=== PATIENT | female | born 1995 | race Caucasian/White ===

== ENCOUNTER → 2018-04-28 13:47 | Outpatient (CLI) | payer OTHER, SELFPAY ==
[2018-04-28 15:48] LABS: Alanine Aminotransferase 26 IU/L (9-52); Albumin 5.2 g/dL (3.5-5.0); Albumin Globulin Ratio 1.7 (1.0-2.8); Alkaline Phosphatase 52 U/L (38-126); Aspartate Aminotransferase 29 IU/L (14-36); BUN Creatinine Ratio 17.5 (6-22); Bilirubin Total 0.4 mg/dL (0.2-1.3); Blood Urea Nitrogen 14 mg/dL (7-17); Calcium 9.9 mg/dL (8.4-10.2); Carbon Dioxide 28 mmol/L (22-32); Chloride 100 mmol/L (98-107); Estimated Glomerular Filt Rate > 60.0 mL/min (>60); Globulin 3.1 g/dL (1.7-4.1); Glucose 84 mg/dL (70-100); HEMOLYSIS < 15 (0-50); Potassium 4.6 mmol/L (3.4-5.1); Sodium 140 mmol/L (137-145); Total Protein 8.3 g/dL (6.3-8.2)
== END ==
PROVIDERS: PCP Family Medicine; Visit Provider Physician Assistant
DX: L70.0 Acne vulgaris (principal)
CPT/HCPCS: 36415; 80053

== ENCOUNTER → 2018-08-17 08:26 | Outpatient (CLI) | payer OTHER, SELFPAY ==
[2018-08-17 10:37] LABS: Alanine Aminotransferase 12 IU/L (9-52); Albumin 4.6 g/dL (3.5-5.0); Albumin Globulin Ratio 1.5 (1.0-2.8); Alkaline Phosphatase 55 U/L (38-126); Aspartate Aminotransferase 25 IU/L (14-36); BUN Creatinine Ratio 11.3 (6-22); Bilirubin Total 0.3 mg/dL (0.2-1.3); Blood Urea Nitrogen 9 mg/dL (7-17); Calcium 9.4 mg/dL (8.4-10.2); Carbon Dioxide 26 mmol/L (22-32); Chloride 101 mmol/L (98-107); Estimated Glomerular Filt Rate > 60.0 mL/min (>60); Glucose 94 mg/dL (70-100); HEMOLYSIS < 15 (0-50); Potassium 4.3 mmol/L (3.4-5.1); Sodium 139 mmol/L (137-145); Total Protein 7.6 g/dL (6.3-8.2)
== END ==
PROVIDERS: Family Provider Family Medicine; PCP Family Medicine; Visit Provider Physician Assistant
DX: L70.0 Acne vulgaris (principal)
CPT/HCPCS: 36415; 80053

== ENCOUNTER → 2020-06-18 14:35 | Outpatient (CLI) | payer OTHER, SELFPAY ==
--- NOTE | 2020-06-18 14:37 | DI.RAD.S_ITS ---
PROCEDURE: XR FINGER LT MIN 2V INDICATIONS: L 3rd finger tip injury, r/o fracture. TECHNIQUE: AP hand, 2 views of the 3rd finger(s) acquired. COMPARISON: None. FINDINGS: Bones: No fractures or dislocations. No suspicious bony lesions. Soft tissues: No suspicious soft tissue calcifications. IMPRESSION: No acute osseous abnormalities. Dictated by: Saloni Serrano M.D. on 06/18/2020 at 14:52 Approved by: Saloni Serrano M.D. on 06/18/2020 at 14:53
== END ==
PROVIDERS: Family Provider Family Medicine; PCP Family Medicine; Referring Provider Nurse Practitioner; Visit Provider Nurse Practitioner
DX: S69.92XA Unspecified injury of left wrist, hand and finger(s), initial encounter (principal); X58.XXXA Exposure to other specified factors, initial encounter
CPT/HCPCS: 73140

== ENCOUNTER → 2020-11-21 12:00 | Outpatient (CLI) | payer OTHER, SELFPAY ==
--- NOTE | 2020-11-21 12:03 | DI.US.S_ITS ---
PROCEDURE: US OB <= 14 WEEKS FETUS INDICATIONS: INITIAL SIZING AND DATING. OUTSIDE/PRIOR DATING DATA: Last menstrual period (LMP): 09/30/2020 LMP-based estimated date of delivery (APRIL): 07/07/2021. First dating scan (date and location): 11/21/2020. Estimated date of delivery (APRIL) from first dating scan: 07/02/2021. TECHNIQUE: Real-time scanning was performed of the fetus and maternal pelvic organs, with image documentation. Endovaginal scanning was also performed to better visualize the fetus and maternal ovaries. COMPARISON: None. FINDINGS: Embryo: [place]-rump length measures 1.7 cm corresponding to 8 weeks 1 day. Heart rate: 169 Measurement variability in dating: +/- 4 weeks by LMP, +/- 7 days by mean sac diameter (use before 6 weeks gestation if crown-rump length not able to be measured), +/- 5 days by crown-rump length (up to 8 weeks 6 days gestation), +/- 7 days by crown-rump length (up to 13 weeks 6 days gestation). Maternal organs: Ovaries within normal limits . IMPRESSION: 8 week 1 day single living IUP. Dictated by: Juaquin Stein Luis F Interpreted: Luigi Su MD on 11/21/2020 at 13:56 Transcribed by: SPARKLE on 11/21/2020 at 13:57 Approved by: Luigi Su M.D. on 11/21/2020 at 14:09
== END ==
PROVIDERS: Family Provider Family Medicine; PCP Family Medicine; Referring Provider Family Medicine; Visit Provider Family Medicine
DX: Z34.81 Encounter for supervision of other normal pregnancy, first trimester (principal); Z3A.08 8 weeks gestation of pregnancy
CPT/HCPCS: 76801; 76817

== ENCOUNTER → 2021-01-14 10:25 | Outpatient (CLI) | payer OTHER, SELFPAY ==
[2021-01-16 20:14] LABS: AFP Value 25.6 ng/mL (.); Gest Age on Col Date 21.6 weeks (.); Gestational Age Ultrasound (.); Insulin Dep Diabetes No (.); OSBR Risk 1IN 10000 (.); Results Report (.); Test Results *Screen Negative* (.)
== END ==
PROVIDERS: Family Provider Family Medicine; PCP Family Medicine; Referring Provider Family Medicine; Visit Provider Family Medicine
DX: Z34.00 Encounter for supervision of normal first pregnancy, unspecified trimester (principal)
CPT/HCPCS: 36415; 82105

== ENCOUNTER → 2021-02-24 10:41 | Outpatient (CLI) | payer OTHER, SELFPAY ==
--- NOTE | 2021-02-24 | DI.US.S_ITS ---
PROCEDURE: US OB >= 14 WEEKS FETUS INDICATIONS: 20 WEEK ANATOMY SCAN OUTSIDE/PRIOR DATING DATA: Last menstrual period (LMP): 09/30/20 . LMP-based estimated date of delivery (APRIL): 07/07/21 . First dating scan (date and location): 11/21/20 . Estimated date of delivery (APRIL) from first dating scan: 07/02/21 . TECHNIQUE: Real-time scanning was performed of the fetus, with image documentation and biometric measurements. Endovaginal scanning: Not performed COMPARISON: [facility], OB <= 14 WEEKS FETUS, 11/21/2020, 11:26. FINDINGS: General: A single living intrauterine gestation is present. Presentation: Variable. Placenta: Placental position is anterior , without previa. Amniotic fluid index: 19.9 cm, normal range is 5-24 cm. Largest pocket measures 7.7 cm heart rate: 157 beats per minute. Maternal cervical canal: 4.4 cm long. Normal lower limit is 2.5 cm. biometrics: Biparietal diameter: 22 weeks 1 day Head circumference: 22 weeks 5 days Abdominal circumference: 23 weeks 2 days Femur length: 22 weeks 0 days Estimated gestational age from initial scan: 21 weeks 5 days Composite gestational age from present scan: 22 weeks 4 days Estimated weight and percentile: 527 g, 90th percentile Measurement variability for biometric dating: +/- 7 days from 14 weeks to 15 weeks 6 days gestation, +/- 10 days from 16 weeks to 21 weeks 6 days gestation, +/- 2 weeks from 22 weeks to 27 weeks 6 days gestation, +/- 3 weeks for 28 weeks gestation or later. weight reference: 4500 g or EFW >90/95% is considered macrosomia or large for gestational age. EFW <10% is small for gestational age. EFW 5% or less is considered intra-uterine growth restriction. Anatomic survey: Neuro: Ventricles are non-dilated at less than 10 mm. Cisterna magna is normal at 3-11 mm. Cerebellum is normal in size and morphology. Nuchal skin fold: Normal at less than 6 mm between 14-21 weeks gestational age. Face: Nose and lips, facial profile are normal. Spine: No evidence for spina bifida. Heart: 4-chambered heart is present, with normal ventricular outflow tracts. Diaphragm: Diaphragm is intact. Stomach: Left-sided stomach is present. Kidneys: No hydronephrosis. Normal is less than 5 mm in 2nd trimester, less than 7 mm in 3rd trimester. Cord: 3-vessel cord has orthotopic insertion. Bladder: Normal in size. Extremities: All 4 extremities identified. IMPRESSION: Single living intrauterine fetus demonstrating variable presentation. Expected interval growth. Normal anatomic survey Dictated by: Dimitri Joseph M.D. on 02/24/2021 at 16:43 Approved by: Dimitri Joseph M.D. on 02/24/2021 at 16:46
== END ==
PROVIDERS: Family Provider Family Medicine; PCP Family Medicine; Referring Provider Family Medicine; Visit Provider Family Medicine
DX: Z36.89 Encounter for other specified antenatal screening (principal); Z3A.22 22 weeks gestation of pregnancy
CPT/HCPCS: 76811

== ENCOUNTER 2021-04-15 10:36 | Outpatient (CLI) | payer OTHER, MEDICAID, SELFPAY ==
--- NOTE | 2021-04-15 10:43 | DI.US.S_ITS ---
PROCEDURE: US OB BIOPHYSICAL PROFILE INDICATIONS: high blood pressure OUTSIDE/PRIOR DATING DATA: Last menstrual period (LMP): 09/30/2020 LMP-based estimated date of delivery (APRIL): 06/17/2021 First dating scan (date and location): 11/21/2020 Estimated date of delivery (APRIL) from first dating scan: 07/02/2021 TECHNIQUE: Real-time scanning was performed of the fetus for biophysical profile, with image documentation. COMPARISON: [facility], OB <= 14 WEEKS FETUS, 11/21/2020, 11:26. [facility], OB >= 14 WEEKS FETUS, 02/24/2021, 10:46. FINDINGS: General: A single living intrauterine gestation is present. Presentation: Vertex Placenta: Placental position is anterior, without previa. Amniotic fluid index: 14.3 cm, normal range is 5-24 cm. Single deepest vertical pocket is 4.6 cm. heart rate: 149 beats per minute. Maternal cervical canal: Not well seen. Estimated gestational age from initial scan: 29 weeks, 0 day. Biophysical profile: Tone: 2 points. Movement: 2 points. Respiration: 2 points. Largest pocket of fluid: 2 points. IMPRESSION: 1. Single live intrauterine with fetus in vertex presentation. heart rate is 149 beats per minute. Normal amount of amniotic fluid. 2. biophysical profile score is 8/8. We strive to produce accurate, complete, and clear reports of imaging services. To assist us in improving patient care, this report was composed using standard report templates and voice recognition software. Therefore, it may contain abnormal punctuation, insertions and/or omissions. Occasional wrong-word or sound-alike substitutions may occur. Though we review the report and make efforts to correct it, we do recommend that the report be read carefully in proper context to recognize any text inaccuracies. Dictated by: Darrell Torres M.D. on 04/15/2021 at 12:03 Approved by: Darrell Torres M.D. on 04/15/2021 at 12:05
[2021-04-15 11:15] LABS: Add Manual Diff / Slide Review NO; Basophils Absolute Auto 0 /uL (0-100); Basophils Percent Auto 0.3 % (0-2); Eosinophils Absolute Auto 0 /uL (0-450); Eosinophils Percent Auto 0.5 % (2-4); Hematocrit 35.8 % (36-46); Hemoglobin 12.4 g/dL (12.0-16.0); Lymphocytes Absolute Auto 1700 /uL (1100-4500); Lymphocytes Percent Auto 17.3 % (25-40); Mean Corpuscular HGB Conc 34.5 % (30-36); Mean Corpuscular Volume 89.8 fL (80-100); Monocytes Absolute Auto 800 /uL (0-900); Monocytes Percent Auto 7.6 % (3-14); Neutrophils Absolute Auto 7400 /uL (1500-7000); Neutrophils Percent Auto 74.3 % (50-75); Platelet Count 235 X10^3/uL (150-400); Red Blood Cell Count 3.98 X10^6/uL (4.0-5.2); Red Cell Distribution Width 12.5 % (11.6-14.8)
[2021-04-15 11:22] LABS: Creatinine Urine Random 59.8 mg/dL; Protein (Total) Urine Random 14 mg/dL (0-12); Protein Creatinine Ratio Urine 0.23 GRAM/24H
[2021-04-15 11:27] LABS: Alanine Aminotransferase 15 IU/L (<35); Albumin 4.1 g/dL (3.5-5.0); Albumin Globulin Ratio 1.2 (1.0-2.8); Alkaline Phosphatase 64 U/L (38-126); Aspartate Aminotransferase 27 IU/L (14-36); BUN Creatinine Ratio 12.8 (6-22); Bilirubin Total 0.2 mg/dL (0.2-1.3); Blood Urea Nitrogen 6 mg/dL (7-17); Calcium 9.4 mg/dL (8.4-10.2); Carbon Dioxide 26 mmol/L (22-32); Chloride 105 mmol/L (98-107); Estimated Glomerular Filt Rate > 60.0 mL/min (>60); Globulin 3.3 g/dL (1.7-4.1); Glucose 86 mg/dL (70-100); HEMOLYSIS < 15 (0-50); Potassium 3.8 mmol/L (3.4-5.1); Sodium 134 mmol/L (137-145); Total Protein 7.4 g/dL (6.3-8.2)
== END 2021-04-15 11:52 | disposition home or self-care (01) ==
LOC: LABOR 11:34 → OB 04-17 11:08
PROVIDERS: Family Provider Family Medicine; PCP Family Medicine; Referring Provider Student in an Organized Health Care Education/Training Program; Visit Provider Student in an Organized Health Care Education/Training Program
DX: O13.3 Gestational [pregnancy-induced] hypertension without significant proteinuria, third trimester (principal); Z3A.28 28 weeks gestation of pregnancy
CPT/HCPCS: 36415; 59025; 76819; 80053; 82570; 84156; 84450; 84550; 85025; G0378; G0379

== ENCOUNTER 2021-05-23 14:12 | Outpatient (CLI) | payer OTHER, MEDICAID, SELFPAY ==
[2021-05-23 15:32] LABS: Appearance Urine UA SL CLOUDY; Bilirubin Urine UA NEGATIVE (NEGATIVE); Color Urine UA YELLOW; Glucose Urine UA NEGATIVE (Negative); Ketones Urine UA 1+ (NEGATIVE); Leukocyte Esterase Urine UA 1+ (NEGATIVE); Nitrite Urine UA NEGATIVE (Negative); Occult Blood Urine UA NEGATIVE (Negative); Protein Urine UA TRACE (Negative); Urobilinogen Urine UA 0.2 E.U./dL (0.2)
[2021-05-23 15:51] LABS: Amorphous Sediment Urine 1+; Bacteria Urine Moderate (10-30); Culture Indicated Urine Cult Not Indicated; RBC Urine 0-1/HPF (0-5/HPF); Squamous Epithelial Cell Urine 10-30 /HPF (0-5/HPF); WBC Urine 5-10/HPF (0-5/HPF)
[2021-05-23 16:04] LABS: Add Manual Diff / Slide Review NO; Basophils Absolute Auto 100 /uL (0-100); Basophils Percent Auto 0.6 % (0-2); Eosinophils Absolute Auto 100 /uL (0-450); Eosinophils Percent Auto 0.5 % (2-4); Hematocrit 35.8 % (36-46); Hemoglobin 12.2 g/dL (12.0-16.0); Lymphocytes Absolute Auto 2200 /uL (1100-4500); Lymphocytes Percent Auto 18.9 % (25-40); Mean Corpuscular HGB Conc 33.9 % (30-36); Mean Corpuscular Hemoglobin 30.6 PG (26-34); Mean Corpuscular Volume 90.2 fL (80-100); Monocytes Absolute Auto 1000 /uL (0-900); Monocytes Percent Auto 8.1 % (3-14); Neutrophils Absolute Auto 8500 /uL (1500-7000); Neutrophils Percent Auto 71.9 % (50-75); Platelet Count 225 X10^3/uL (150-400); Red Blood Cell Count 3.97 X10^6/uL (4.0-5.2); Red Cell Distribution Width 12.8 % (11.6-14.8); White Blood Cell Count 11.8 X10^3/uL (4.5-11.0)
[2021-05-23 16:17] LABS: Aspartate Aminotransferase 26 IU/L (14-36); BUN Creatinine Ratio 16.3 (6-22); Blood Urea Nitrogen 8 mg/dL (7-17); Estimated Glomerular Filt Rate > 60.0 mL/min (>60); Uric Acid 3.5 mg/dL (2.5-6.2)
[2021-05-23 17:29] LABS: Creatinine Urine Random 105.9 mg/dL; Protein (Total) Urine Random 12 mg/dL (0-12); Protein Creatinine Ratio Urine 0.11 GRAM/24H
[2021-05-24 18:30] LABS: Collection Time Urine 24 Hours; Protein (Total) Urine Random 10 mg/dL (0-12); Total Protein 24 Hour Urine 155 mg/day (42-225); Total Volume Urine 1550 mL
== END 2021-05-23 16:55 | disposition home or self-care (01) ==
LOC: LABOR 14:30 → OB 05-26 07:24
PROVIDERS: Family Provider Family Medicine; PCP Family Medicine; Referring Provider Student in an Organized Health Care Education/Training Program; Visit Provider Student in an Organized Health Care Education/Training Program
DX: O13.3 Gestational [pregnancy-induced] hypertension without significant proteinuria, third trimester (principal); Z3A.34 34 weeks gestation of pregnancy
CPT/HCPCS: 36415; 59025; 81001; 82570; 84156; 84450; 84550; 85025; G0378; G0379

== ENCOUNTER 2021-06-12 11:19 | Outpatient (CLI) | payer OTHER, MEDICAID, SELFPAY | END 2021-06-12 12:10 | disposition home or self-care (01) | LOC: OB 06-18 16:27 | PROVIDERS: Family Provider Family Medicine; PCP Family Medicine; Referring Provider Student in an Organized Health Care Education/Training Program; Visit Provider Student in an Organized Health Care Education/Training Program | DX: O13.3 Gestational [pregnancy-induced] hypertension without significant proteinuria, third trimester (principal); Z3A.37 37 weeks gestation of pregnancy; O14.93 Unspecified pre-eclampsia, third trimester | CPT/HCPCS: 59025; 76819; G0378; G0379 ==

== ENCOUNTER → 2021-06-12 12:15 | Outpatient (CLI) | payer OTHER, MEDICAID, SELFPAY ==
--- NOTE | 2021-06-12 | DI.US.S_ITS ---
PROCEDURE: US OB BIOPHYSICAL PROFILE INDICATIONS: BPP; PRE-ECLAMPSIA OUTSIDE/PRIOR DATING DATA: Last menstrual period (LMP): 09/30/2020 LMP-based estimated date of delivery (APRIL): 07/07/2021 First dating scan (date and location): 11/21/2020 Estimated date of delivery (APRIL) from first dating scan: 07/02/2021 The calculations are made using the study generated APRIL of 07/01/2021. TECHNIQUE: Real-time scanning was performed of the fetus for biophysical profile, with image documentation. Color and pulse Doppler interrogation was also performed of the umbilical artery near its insertion into the placenta. Endovaginal scannin Angelina it COMPARISON: [facility], , OB BIOPHYSICAL PROFILE, 04/15/2021, 11:07. FINDINGS: General: A single living intrauterine gestation is present. Presentation: Vertex. Placenta: Placental position is anterior, without previa. Amniotic fluid index: 17.4 cm, normal range is 5-24 cm. Single deepest vertical pocket is 7.2 cm. heart rate: 140 beats per minute. Maternal cervical canal: Not well seen. Estimated gestational age from initial scan: 37 weeks, 1 day. Biophysical profile: Tone: 2 points. Movement: 2 points. Respiration: 2 points. Largest pocket of fluid: 2 points. IMPRESSION: 1. Single live intrauterine gestation with fetus in vertex presentation. heart rate is 140 beats per minute. Normal amount of amniotic fluid. 2. biophysical profile score is 8/8. We strive to produce accurate, complete, and clear reports of imaging services. To assist us in improving patient care, this report was composed using standard report templates and voice recognition software. Therefore, it may contain abnormal punctuation, insertions and/or omissions. Occasional wrong-word or sound-alike substitutions may occur. Though we review the report and make efforts to correct it, we do recommend that the report be read carefully in proper context to recognize any text inaccuracies. Dictated by: Darrell Torres M.D. on 06/13/2021 at 11:37 Approved by: Darrell Torres M.D. on 06/13/2021 at 11:39
== END ==
PROVIDERS: Family Provider Family Medicine; PCP Family Medicine; Referring Provider Student in an Organized Health Care Education/Training Program; Visit Provider Student in an Organized Health Care Education/Training Program
DX: O14.93 Unspecified pre-eclampsia, third trimester (principal); Z3A.37 37 weeks gestation of pregnancy
CPT/HCPCS: 76819

== ENCOUNTER → 2021-06-19 10:08 | Outpatient (CLI) | payer OTHER, MEDICAID, SELFPAY ==
--- NOTE | 2021-06-19 | DI.US.S_ITS ---
PROCEDURE: US OB LIMITED INDICATIONS: EFW; BPP OUTSIDE/PRIOR DATING DATA: Last menstrual period (LMP): September 30, 2020. LMP-based estimated date of delivery (APRIL): July 07, 2021. First dating scan (date and location): November 21, 2020, [facility]. Estimated date of delivery (APRIL) from first dating scan: July 02, 2021. TECHNIQUE: Real-time scanning was performed of the fetus for biophysical profile, with image documentation. Color and pulse Doppler interrogation was also performed of the umbilical artery near its insertion into the placenta. Endovaginal scanning: Not performed COMPARISON: None. FINDINGS: General: A single living intrauterine gestation is present. Presentation: Vertex. Placenta: Placental position is anterior , without previa. Lower placental edge 0.5 to 3 cm from internal cervical os qualifies as low lying placenta. Marginal previa is defined as lower edge 0 to 0.5 mm from internal os. Amniotic fluid index: 11.9 cm, normal range is 5-24 cm. Single deepest vertical pocket is 4.5 cm. heart rate: 155 beats per minute. Estimated gestational age from initial scan: 38 weeks 1 day. Composite gestational age today: 40 weeks 3 days. Biophysical profile: Tone: 2 points. Movement: 2 points. Respiration: 2 points. Largest pocket of fluid: 2 points. IMPRESSION: Single live intrauterine gestation with a composite gestational age of 40 weeks, 3 days. We strive to produce accurate, complete, and clear reports of imaging services. To assist us in improving patient care, this report was composed using standard report templates and voice recognition software. Therefore, it may contain abnormal punctuation, insertions and/or omissions. Occasional wrong-word or sound-alike substitutions may occur. Though we review the report and make efforts to correct it, we do recommend that the report be read carefully in proper context to recognize any text inaccuracies. Dictated by: Morena Maldonado M.D. on 06/19/2021 at 14:43 Approved by: Morena Maldonado M.D. on 06/19/2021 at 14:47
== END ==
PROVIDERS: Family Provider Family Medicine; PCP Family Medicine; Referring Provider Student in an Organized Health Care Education/Training Program; Visit Provider Student in an Organized Health Care Education/Training Program
DX: Z34.03 Encounter for supervision of normal first pregnancy, third trimester (principal); Z3A.40 40 weeks gestation of pregnancy
CPT/HCPCS: 76815; 87081

== ENCOUNTER 2021-06-19 10:55 | Outpatient (CLI) | payer OTHER, MEDICAID, SELFPAY | END 2021-06-19 11:55 | disposition home or self-care (01) | LOC: OB 06-22 10:47 | PROVIDERS: Family Provider Family Medicine; PCP Family Medicine; Referring Provider Student in an Organized Health Care Education/Training Program; Visit Provider Student in an Organized Health Care Education/Training Program | DX: O13.3 Gestational [pregnancy-induced] hypertension without significant proteinuria, third trimester (principal); Z34.03 Encounter for supervision of normal first pregnancy, third trimester; Z3A.40 40 weeks gestation of pregnancy; Z3A.38 38 weeks gestation of pregnancy | CPT/HCPCS: 59025; 76815; 76819; 76820; 87081; 87147; G0378; G0379 ==

== ENCOUNTER → 2021-06-20 13:11 | Outpatient (CLI) | payer OTHER, MEDICAID, SELFPAY ==
[2021-06-20 17:00] LABS: Collection Time Urine 24 Hours; Protein (Total) Urine Random 13 mg/dL (0-12); Total Protein 24 Hour Urine 182 mg/day (42-225); Total Volume Urine 1400 mL
== END ==
PROVIDERS: Family Provider Family Medicine; PCP Family Medicine; Referring Provider Student in an Organized Health Care Education/Training Program; Visit Provider Student in an Organized Health Care Education/Training Program
DX: Z34.00 Encounter for supervision of normal first pregnancy, unspecified trimester (principal)
CPT/HCPCS: 84156

== ENCOUNTER 2021-06-23 09:54 | Outpatient (CLI) | payer OTHER, MEDICAID, SELFPAY ==
[2021-06-23 11:00] VITALS: BP 135/89; PULSE 98; RESP 20; TEMP 36.4
== END 2021-06-23 10:30 | disposition home or self-care (01) ==
LOC: LABOR 10:26 → OB 06-24 06:45
PROVIDERS: Family Provider Family Medicine; PCP Family Medicine; Referring Provider Student in an Organized Health Care Education/Training Program; Visit Provider Student in an Organized Health Care Education/Training Program
DX: O13.3 Gestational [pregnancy-induced] hypertension without significant proteinuria, third trimester (principal); Z3A.38 38 weeks gestation of pregnancy
CPT/HCPCS: 59025; G0378; G0379

== ENCOUNTER 2021-06-24 20:54 | Inpatient (IN) | payer OTHER, MEDICAID, SELFPAY ==
[2021-06-24] MEDS: LACTATED RINGERS 1,000 ML 100 ML IV (22:00)
[2021-06-24 22:15] VITALS: BP 143/75
[2021-06-24 22:30] LABS: Add Manual Diff / Slide Review NO; Basophils Absolute Auto 100 /uL (0-100); Basophils Percent Auto 0.4 % (0-2); Eosinophils Absolute Auto 200 /uL (0-450); Lymphocytes Absolute Auto 2000 /uL (1100-4500); Mean Corpuscular HGB Conc 34.2 % (30-36); Mean Corpuscular Hemoglobin 30.7 PG (26-34); Mean Corpuscular Volume 89.7 fL (80-100); Monocytes Absolute Auto 1000 /uL (0-900); Monocytes Percent Auto 8.3 % (3-14); Neutrophils Absolute Auto 8600 /uL (1500-7000); Neutrophils Percent Auto 72.3 % (50-75); Platelet Count 200 X10^3/uL (150-400); Red Blood Cell Count 3.57 X10^6/uL (4.0-5.2); White Blood Cell Count 11.9 X10^3/uL (4.5-11.0)
[2021-06-24 22:31] LABS: Aspartate Aminotransferase 27 IU/L (14-36); BUN Creatinine Ratio 14.3 (6-22); Blood Urea Nitrogen 9 mg/dL (7-17); Estimated Glomerular Filt Rate > 60.0 mL/min (>60)
[2021-06-24 22:35] LABS: COVID19 -Nasal RAPID Negative (Negative)
[2021-06-24] MEDS: AMPICILLIN 2,000 MG in SODIUM CHLORIDE 0.9% 100 ML 200 ML IV (23:11)
[2021-06-24] MEDS: OXYTOCIN PREMIX 30 UNIT/500 ML PLAST..BAG IV (23:14)
[2021-06-24] MEDS: ZOLPIDEM 5 MG TABLET PO (23:20)
[2021-06-25] MEDS: LACTATED RINGERS 1,000 ML 100 ML IV ×3 (00:24→17:05)
[2021-06-25] MEDS: AMPICILLIN 1,000 MG in SODIUM CHLORIDE 0.9% 100 ML 200 ML IV ×5 (03:32→21:35)
--- NOTE | 2021-06-25 05:46 | PM.OBHP.1 ---
OB HPI Date/Time Date of admission: 06/24/21 Date Patient Seen: 06/25/21 Time Patient Seen: 05:47 History of Present Condition Chief complaint: induction Narrative: Nelly Rodriguez is a 26 year female at 39w0d with APRIL of 07/02/21 per first trimester ultrasound. She presents for induction of labor secondary to gestational hypertension and macrosomia Grade 1. Her course has been complicated by rising blood pressures in the last 3 weeks (120-140/70-90 at home and 140/90s in the office) with negative preeclampsia work-ups at 37w1 and 38w1d. During this same time frame, her fundal height has been measuring greater than dates, US at 38w1d showed an EFW of 4222 grams, 99th percentile with a normal BAILEY of 11.9 cm. Her 1 hour gluocola was 108. She has gained 47 pounds during this . She is Rh negative and received Rhogam at 28 WGA. She is also GBS positive. LABS/IMAGING: ABO B negative, antibody negative on 12/04/20 and 03/31/21. Rubella immune. Hepatitis-B surface antigen negative. HIV, HSV 1 and 2 negative. GC/chlamydia negative. Treponemal antibody negative. Varicella titer positive. Pap smear negative on 09/28/18. Hemoglobin/hematocrit 13.3/39.2 on 12/04/20. Repeat hemoglobin/hematocrit 12.3/36.6 on 06/12/21. TSH within normal limits. 1 hour Glucola 108 on 03/31/21. GBS positive on 06/19/21. NIPT negative on 12/04/20, male. Dating US: 11/21/2020, 8w1d, normal, APRIL 07/02/21 Anatomy Scan: 02/24/21, normal BPP: 04/15/21, 06/12/21, 06/29/21, 8/8 with EFW on last scan 4222 g OBSTETRIC HISTORY: GYNECOLOGICAL HISTORY: None PAST MEDICAL HISTORY: PTSD Anxiety PAST SURGICAL HISTORY: None FAMILY HISTORY: Father: hypertension, alcoholism Mother: depression, hypothyroidism No congenital defects. SOCIAL HISTORY: to Brian. Brian works in commercial fishing. Nelly has had some college classes. No alcohol, drug, or tobacco use. [facility] Medical History No significant medical problems Family History Father Hypertension Grandmother Cancer Social History marital status: unmarried,living together household members: significant other occupational status: employed Smoking Status: Never smoker alcohol intake: current substance use type: marijuana Meds Home Medications and Allergies Home Medications Medication Instructions Recorded Confirmed Type hydroxyzine HCl 10 mg tablet 10 mg PO DAILY PRN tab 10/19/18 06/24/21 History norethindrone acetate 1.5 1 tab PO DAILY 10/19/18 06/24/21 History mg-ethinyl estradiol 30 mcg tablet (Microgestin) spironolactone 50 mg tablet 50 mg PO DAILY 10/19/18 06/24/21 History Allergies Allergy/AdvReac Type Severity Reaction Status Date / Time No Known Drug Allergies Allergy Unverified 06/18/20 14:16 Review of Systems Review of Systems Narrative: All remaining ROS were reviewed and negative except as addressed. OB Exam Narrative Exam Narrative: General: NAD Skin: Color unremarkable, no rash nor lesions HEENT: Neck supple with midline trachea Lungs: CTAB Heart: Normal rate, and regular rhythm, S1, S2 normal, no murmur, click, rub or gallop Abdomen: Gravid, soft, non-tender Extremities: No clubbing, no edema, no cyanosis Pelvis: Normal female external genitalia Presentation: vertex Cervix: 4/90/-3/mid/soft Monitoring: Variability: Moderate Baseline: 130s Accelerations: Present Decelerations: Variable x 1 Contractions: Every 1-5 minutes Strength: Mild Pitocin: 14 units Objective Labs Result Diagrams: 06/24/21 21:55 06/24/21 21:55 Labs: Laboratory Results - last 24 hr 06/24/21 06/24/21 06/24/21 21:55 21:55 21:55 WBC 11.9 H RBC 3.57 L Hgb 11.0 L Hct 32.0 L MCV 89.7 MCH 30.7 MCHC 34.2 RDW 13.0 Plt Count 200 Neut % (Auto) 72.3 Lymph % (Auto) 17.0 L [place] % (Auto) 8.3 Eos % (Auto) 2.0 Baso % (Auto) 0.4 Neut # (Auto) 8600 H Lymph # (Auto) 2000 [place] # (Auto) 1000 H Eos # (Auto) 200 Baso # (Auto) 100 BUN Creatinine Estimated GFR BUN/Creatinine Ratio Uric Acid AST SARS-CoV-2 (PCR) Negative Blood Type B Negative Antibody Screen Negative 06/24/21 21:55 WBC RBC Hgb Hct MCV MCH MCHC RDW Plt Count Neut % (Auto) Lymph % (Auto) [place] % (Auto) Eos % (Auto) Baso % (Auto) Neut # (Auto) Lymph # (Auto) [place] # (Auto) Eos # (Auto) Baso # (Auto) BUN 9 Creatinine 0.63 Estimated GFR > 60.0 BUN/Creatinine Ratio 14.3 Uric Acid 5.0 AST 27 SARS-CoV-2 (PCR) Blood Type Antibody Screen Assessment and Plan Assessment and Plan Assessment and Plan narrative: 1. IUP at 39w0d 2. 3. Gestational hypertension 4. Macrosomia Grade 1, 4222 grams at 38w1d, 99% percentile 5. Excessive maternal weight gain, 47 pounds 6. Anxiety 7. PTSD 8. Latent labor Plan: Admit to Labor and delivery with routine orders for induction. Ampicillin for GBS. As patient already had a ripe cervix and was polo a bit on her own upon presentation late last night, have proceeded with pitocin augmentation rather than planned cytotec. Anticipate vaginal delivery. Secondary to macrosomia grade 1, patient understands that delivery is at increased risk for shoulder dystocia, injury, hypoglycemia, etc. Will proceed with a trial of labor but have a low threshold for if any complications arise, especially if the second stage is prolonged. Will plan for on-call physician/surgical team stand-by at time of delivery. Questions answered, appropriate consents will be signed.
--- NOTE | 2021-06-25 09:23 | P.PCN_ITS ---
Regional Block Pre-procedure Procedure: Continuous Lumbar Epidural for L&D Attending OB provider: Tamy Barros PMH/ROS narrative: term induction for GHTN, macrosomia with no evidence of pre- ecclampsia, on spironolactone ASA Class: II Labs: Hct 32.0 % (36-46) L 06/24/21 21:55 Plt Count 200 X10^3/uL (150-400) 06/24/21 21:55 Medications: Current Medications Generic Name Dose Route Start Last Admin Trade Name Freq PRN Reason Stop Dose Admin Acetaminophen 650 mg 06/24/21 21:32 Acetaminophen 325 Mg Tablet PO Q4HR PRN Fever/Mild Pain (1-3) Calcium Carbonate 1,000 mg 06/24/21 21:26 Calcium Carbonate 500 Mg Tab PO Q2HR PRN Dyspepsia Carboprost Tromethamine 250 mcg 06/24/21 21:19 Carboprost 250 Mcg/Ml Ampul IM Q90M PRN Bleeding Fentanyl 100 mcg 06/24/21 21:26 Fentanyl 100 Mcg/2 Ml Inj IV Q1H PRN Pain, Severe (7-10) Oxytocin/Lactated Ringer's 30 unit in 500 mls @ 200 mls/hr 06/24/21 21:19 Oxytocin Premix IV CONT PRN Bleeding Protocol Tranexamic Acid 1,000 mg/ 100 mls @ 200 mls/hr 06/24/21 21:19 Sodium Chloride IV NOW PRN Bleeding Ampicillin Sodium 1,000 mg/ 100 mls @ 200 mls/hr 06/25/21 01:30 06/25/21 07:25 Sodium Chloride IV 200 mls/hr Q4H DORIS Administration Oxytocin/Lactated Ringer's 30 unit in 500 mls @ 1 mls/hr 06/24/21 21:30 06/24/21 23:14 Oxytocin Premix IV 1 milliunit/min TITRATE DORIS 1 mls/hr Administration Protocol 1 MILLIUNIT/MIN Lactated Ringer's 1,000 mls @ 100 mls/hr 06/24/21 21:45 06/25/21 00:24 Lactated Ringers IV 100 mls/hr CONT DORIS Administration Methylergonovine Maleate 0.2 mg 06/24/21 21:19 Methylergonovine 0.2 Mg Tablet PO Q6HR PRN Heavy Bleeding Methylergonovine Maleate 0.2 mg 06/24/21 21:19 Methylergonovine 0.2 Mg/Ml Vial IM NOW PRN Bleeding Metoclopramide HCl 10 mg 06/24/21 21:26 Metoclopramide 10 Mg/2 Ml Inj IV NOW PRN Nausea And Vomiting Misoprostol 800 mcg 06/24/21 21:19 Misoprostol 200 Mcg Tablet IN NOW PRN Bleeding Misoprostol 1,000 mcg 06/24/21 21:19 Misoprostol 200 Mcg Tablet IN NOW PRN Bleeding Misoprostol 400 mcg 06/24/21 21:19 Misoprostol 200 Mcg Tablet SL NOW PRN Bleeding Misoprostol 50 mcg 06/25/21 01:00 Misoprostol 25 Mcg Tablet PO Q4HR DORIS Morphine Sulfate 2 mg 06/24/21 21:32 Morphine 2 Mg/Ml Inj IV Q4HR PRN Pain, Moderate (4-6) Naloxone HCl 0.2 mg 06/24/21 21: Naloxone 0.4 Mg/Ml Vial IV Q2MIN PRN Opiate Reversal Ondansetron HCl 4 mg 06/24/21 21:26 Ondansetron 4 Mg/2 Ml Inj IV Q4HR PRN Nausea And Vomiting Oxytocin 10 unit 06/24/21 21:19 Oxytocin 10 Unit/Ml Vial IM NOW PRN Bleeding Zolpidem Tartrate 5 mg 06/24/21 21:32 06/24/21 23:20 Zolpidem 5 Mg Tablet PO 5 mg BEDTIME PRN Administration Sleep Allergies: Allergies Allergy/AdvReac Type Severity Reaction Status Date / Time No Known Drug Allergies Allergy Unverified 06/18/20 14:16 Procedure Insertion date: 06/25/21 Prep/Local: betadine x3 and 1% lidocaine Interspace: L3-4 Patient position: sitting Needle: 18 gauge [employer] (CSE: 27g Pencan through Hust[place], clear CSF, 1mL 0.25% bupiv MPF) Loss of resistance with: saline KRISTI at (cm): 5 Catheter placed at SKIN (cm): 10 Catheter in SPACE (cm): 5 Insertion: No CSF, No Blood, No Paresthesia with insertion, No Paresthesia with injection and No Test dose reaction Initial Medications TEST DOSE time: 13:25 TEST DOSE: 1.5% lidocaine with epinephrine 1:200k (mL): 3 BOLUS DOSE time: 13:27 BOLUS DOSE (mL): 5 BOLUS DOSE med: other (infusate) Infusion INFUSION: 0.125% bupivacaine and with fentanyl 2 mcg/mL Initial rate (mL/hr): 8 Subsequent interventions: Started on Mg by OB for elevated BP's with nausea (possible preeclampsia with severe features). 21:39 6mL 0.25% bupiv. pushing. Failure to progress. 10ml 2% lidocaine to epidural with good block to T3 martin aterally. To OR Post-procedure Anesthesia time START: 13:12 Anesthesia time END: 23:13
--- NOTE | 2021-06-25 11:05 | PM.OBPNLAB ---
Date/Time Date Patient Seen: 06/25/21 Time Patient Seen: 11:05 Pain Control Pain control: tolerating well Comments: Patient doing well, Pitocin now at 20 units, contractions becoming more intense, but tolerating well. Compliant with position changes. Pelvic Exam Dilation (cm): 4 Effacement (%): 90 station: -3 Amniotic membrane status: Intact Status Heart Rate Baseline: 140 Monitor Accelerations: Present Monitor Decelerations: Variable Monitor Variability: Moderate Assessment and Plan Assessment: induction ongoing Plan: continuous present management Comments: 1.? IUP at 39w0d 2.? 3.? Gestational hypertension 4.? Macrosomia Grade 1, 4222 grams at 38w1d, 99% percentile 5.? Excessive maternal weight gain, 47 pounds 6.? Anxiety 7.? PTSD 8.? Latent labor Plan: Will continue to titrate Pitocin to achieve a good labor pattern. Baby is still at a -3 position, will hold off on AROM to allow baby to descend more and anticipate AROM at next cervical check. Blood pressures are elevated: 134-146/72-90 with 2 outlier pressures: 183/85 and 179/85. Both of the outlier pressures were rechecked with quick reduction in blood pressure after patient was repositioned. Patient is not meeting severe criteria, holding off on magnesium and antihypertensive therapy at this point. PIH labs at presentation were reassuring. Pr:Cr ratio pending. Will continue to watch closely and proceed with active management of labor.
[2021-06-25] MEDS: CALCIUM CARBONATE 500 MG TAB 1000 MG PO ×2 (11:26→16:59)
[2021-06-25] MEDS: fentaNYL 100 MCG/2 ML INJ IV (12:19)
[2021-06-25] MEDS: ONDANSETRON 4 MG/2 ML INJ IV ×2 (12:46→19:47)
[2021-06-25] MEDS: FENT 2MCG/ML BUPIV 0.125% EPI 200 MCG/100 ML PLAST..BAG 8 MCG EPIDURAL ×2 (13:28→19:36)
--- NOTE | 2021-06-25 14:07 | PM.OBPNLAB ---
Date/Time Date Patient Seen: 06/25/21 Time Patient Seen: 14:07 Pain Control Comments: Doing very well now that epidural is in, pain controlled. Pitocin now turned off, polo on her own, good labor pattern. Pelvic Exam Dilation (cm): 4 Effacement (%): 100 station: -2 Amniotic membrane status: Ruptured (Clear fluid) Contractions Pitocin rate (mU/min): 0 Contraction frequency (min): 2 Contraction duration (min): 1 Contraction pattern: Regular Contraction intensity: Moderate Status Heart Rate Baseline: 140 Monitor Accelerations: Present Monitor Decelerations: Absent Monitor Variability: Moderate Assessment and Plan Assessment: induction ongoing Plan: continuous present management Comments: 1.? IUP at 39w0d 2.? 3.? Gestational hypertension 4.? Macrosomia Grade 1, 4222 grams at 38w1d, 99% percentile 5.? Excessive maternal weight gain, 47 pounds 6.? Anxiety 7.? PTSD 8.? Latent labor 9. GBS Positive, has received adequate prophylaxis Plan: With AROM, hopeful for progression to active labor. Not needing pitocin any longer, will titrate if needed. Blood pressures have been in the non-severe range (133-155/63-86) with two outliers (166/81 and 172/98); watching closely.
--- NOTE | 2021-06-25 17:11 | PM.OBPNLAB ---
Date/Time Date Patient Seen: 06/25/21 Time Patient Seen: 17:11 Pain Control Comments: Patient comfortable with epidural, lying on side with peanut ball. Pitocin remains off, polo every 2-1/2 minutes. Patient does have a sense of when her contractions are coming. Denies any pressure. Pelvic Exam Dilation (cm): 8 Effacement (%): 100 station: +1 Amniotic membrane status: Ruptured (Clear fluid) Contractions Pitocin rate (mU/min): 0 Contraction frequency (min): 2 Contraction duration (min): 1 Contraction pattern: Regular Contraction intensity: Moderate Status Heart Rate Baseline: 135 Monitor Accelerations: Present Monitor Decelerations: Absent Monitor Variability: Moderate Assessment and Plan Comments: 1.? IUP at 39w0d 2.? 3.? Gestational hypertension 4.? Macrosomia Grade 1, 4222 grams at 38w1d, 99% percentile 5.? Excessive maternal weight gain, 47 pounds 6.? Anxiety 7.? PTSD 8.? Active labor 9.? GBS Positive, has received adequate prophylaxis Plan: Continue present management. Will recheck again in about 2 hours. Hopeful for . Have also alerted surgical crew for need of standby during late second-stage.
--- NOTE | 2021-06-25 19:12 | PM.OBPNLAB ---
Date/Time Date Patient Seen: 06/25/21 Time Patient Seen: 19:12 Pain Control Comments: Patient resting comfortably, epidural continues to be working well. Pitocin remains off. Denies headache, some nausea. No right upper quadrant pain, no visual changes. Pelvic Exam Dilation (cm): 9.5 Effacement (%): 100 station: +1 Amniotic membrane status: Ruptured (Clear fluid) Comments: DTRs 2+ and symmetric. Contractions Contraction frequency (min): 2 Contraction pattern: Regular Contraction intensity: Moderate Status Heart Rate Baseline: 140 Monitor Accelerations: Present Monitor Decelerations: Absent Monitor Variability: Moderate Assessment and Plan Comments: 1.? IUP at 39w0d 2.? 3.? Gestational hypertension 4.? Macrosomia Grade 1, 4222 grams at 38w1d, 99% percentile 5.? Excessive maternal weight gain, 47 pounds 6.? Anxiety 7.? PTSD 8.? Active labor 9.? GBS Positive, has received adequate prophylaxis Plan: Blood pressure in the last 2 hours has been 139/69. Discussed case with KARLEY Brown investigation lieutenant. Discussed patient's blood pressures over the last 22 hours, mostly in the 130-150/70-90 range. She has had three severe range blood pressures: 179/85, 166/81, and 172/98. Up to this point, she has had no nausea, vomiting, headache, right upper quadrant pain, or visual changes. She is now having some nausea which could be attributed to transition versus brewing preeclampsia. Will err on the side of caution and administer magnesium 4 g IV bolus and follow with 2 grams/hour infusion. Will watch her blood pressures carefully. Plan to start pushing when she is complete. Secondary to macrosomia, if fetus does not move down through the stations well and/or second-stage is prolonged, will proceed with emergent section secondary to risk of CPD, shoulder dystocia, etc. At this point, baby has made excellent descent in the last 5 hours since AROM. Fetus is straight OA with very little caput. Hopeful for vaginal delivery but crew is on standby if is needed.
[2021-06-25] MEDS: MAGNESIUM SULFATE 4 GM/100 ML PIGGYBACK IV (19:29)
[2021-06-25] MEDS: MAGNESIUM SULFATE 20 GM/500 ML IV.SOLN IV (20:06)
[2021-06-25] MEDS: METOCLOPRAMIDE 10 MG/2 ML INJ IV (20:10)
[2021-06-25 20:28] LABS: Creatinine Urine Random 139.7 mg/dL; Protein (Total) Urine Random 84 mg/dL (0-12)
--- NOTE | 2021-06-25 20:39 | PM.OBPNLAB ---
Date/Time Date Patient Seen: 06/25/21 Time Patient Seen: 20:39 Pain Control Comments: Patient felt pressure, found to be complete. Completed several practice pushes, patient is moving the baby down well. Pr:Cr ratio returned 0.6. Magnesium 4 g bolus in, 2 gm/hour infusing. Patient is status post Zofran and Reglan. Currently denies headache, nausea, vomiting, right upper quadrant pain, or visual changes. Pelvic Exam Dilation (cm): 10 Effacement (%): 100 station: +1 Amniotic membrane status: Ruptured (Clear fluid) Contractions Pitocin rate (mU/min): 0 Contraction frequency (min): 2 Contraction pattern: Regular Contraction intensity: Moderate Status Heart Rate Baseline: 145 Monitor Accelerations: Present Monitor Decelerations: Variable Monitor Variability: Moderate Comments: At bedside, when patient was found to be complete, she started crying and was excited, her blood pressure was taken and found to be 191/117. Reassurance provided and pressure recheck found her to be 159/88. heart rate noted to increase into the 160s during that time, now back into the 145s. Administered 500 cc of LR. Assessment and Plan Comments: 1.? IUP at 39w0d 2.? 3.? Preeclampsia with severe features 4.? Macrosomia Grade 1, 4222 grams at 38w1d, 99% percentile 5.? Excessive maternal weight gain, 47 pounds 6.? Anxiety 7.? PTSD 8.? Active labor 9.? GBS Positive, has received adequate prophylaxis Plan: Have started pushing. Practice pushes appear promising. There is a moderate amount of caput, baby remains in OA position. Will continue with 2nd stage. Magnesium infusing, watching blood pressures closely, will cover with labetalol for SBP greater than 160 and DBP greater than 110. OR crew on standby.
--- NOTE | 2021-06-25 22:14 | PM.OBPNLAB ---
Date/Time Date Patient Seen: 06/25/21 Time Patient Seen: 22:14 Pain Control Comments: Patient starting to feel very fatigued, has been pushing for over 2 hours, very little progress in the last hour. Dr. Landers called to bedside for OB consult. Per her cervical exam, she felt the baby was at 0 station and while mother was making excellent expulsive efforts, baby was not moving down well. Concern for CPD in this macrosomic infant. Pelvic Exam Dilation (cm): 10 Effacement (%): 100 station: +1 Amniotic membrane status: Ruptured (Clear fluid) Contractions Pitocin rate (mU/min): 0 Contraction frequency (min): 2 Contraction pattern: Regular Contraction intensity: Moderate Status Heart Rate Baseline: 150 Monitor Accelerations: Present Monitor Decelerations: Variable Comments: Fetus has rising baseline in the 165-170 range. Assessment and Plan Comments: 1.? IUP at 39w0d 2.? 3.? Preeclampsia with severe features 4.? Macrosomia Grade 1, 4222 grams at 38w1d, 99% percentile 5. Failure to descend 6. Rising heart rate baseline 5.? Excessive maternal weight gain, 47 pounds 6.? Anxiety 7.? PTSD 8.? Active labor 9.? GBS Positive, has received adequate prophylaxis Plan: Mother has been pushing very well with little to no descent in the last hour. Likely cephalopelvic disproportion with failure to descend in this macrosomic infant. Gestational hypertension has progressed to severe preeclampsia during this labor. Fetus is starting to get stressed with rising baseline into the 165-170 range. Maternal temperature remains normal, adequate GBS prophylaxis, with AROM x [address] Landers has kindly consulted on this case and agrees. Plan will be to proceed with emergent section, appropriate consents have been signed. Questions answered.
[2021-06-25 23:05] LABS: Add Manual Diff / Slide Review NO; Basophils Absolute Auto 100 /uL (0-100); Basophils Percent Auto 0.3 % (0-2); Eosinophils Absolute Auto 0 /uL (0-450); Hemoglobin 11.5 g/dL (12.0-16.0); Lymphocytes Absolute Auto 1000 /uL (1100-4500); Lymphocytes Percent Auto 5.7 % (25-40); Mean Corpuscular HGB Conc 33.7 % (30-36); Mean Corpuscular Hemoglobin 30.6 PG (26-34); Mean Corpuscular Volume 90.8 fL (80-100); Monocytes Absolute Auto 1100 /uL (0-900); Monocytes Percent Auto 6.1 % (3-14); Neutrophils Absolute Auto 15600 /uL (1500-7000); Neutrophils Percent Auto 87.9 % (50-75); Platelet Count 190 X10^3/uL (150-400); Red Blood Cell Count 3.75 X10^6/uL (4.0-5.2); Red Cell Distribution Width 13.5 % (11.6-14.8); White Blood Cell Count 17.7 X10^3/uL (4.5-11.0)
--- NOTE | 2021-06-25 23:07 | PM.OP.1 ---
Operative Date/Time/Diagnoses Date of procedure: 06/25/21 Time of procedure: 23:30 Procedure & Clinicians Procedure: Pre-operative Diagnosis: 1.? IUP at 39w0d 2.? 3.? Preeclampsia with severe features 4.? Macrosomia Grade 1, 4222 grams at 38w1d, 99% percentile 5.? Failure to descend 6.? Rising heart rate baseline 7. Cephalopelvic disproportion 8.? Excessive maternal weight gain, 47 pounds 9.? GBS Positive, adequate antibiotic prophylaxis Post-operative Diagnosis: Same Procedure: Primary low transverse section Surgeon: Tamy Barros M.D. Botany Technician: Lashon Landers MD Anesthesia: Spinal Complications: None Estimated blood loss: 800 cc Fluids: 1500 cc crystalloid Urine output: 400 cc clear urine at end of procedure. Indications: 26-year-old at 39w0d with failure to progress, severe preeclampsia, and cephalopelvic disproportion. Findings: Viable male in cephalic presentation. Clear fluid with no cords. Apgars 9 and 9. 9 lb 15 oz, 4533 g. Normal uterus tubes and ovaries. Procedures: The patient was taken to the operating room and Zavenelli's maneuver was employed to disengage patient from the pelvis prior to draping. Epidural anesthesia was found to be inadequate so bolus was given and 0.25% Marcaine was used at the incision to improve anesthesia. Patient was then prepared and draped in the normal sterile fashion in the dorsal supine position with a leftward tilt. A Pfannenstiel skin incision was then made with a scalpel and carried through to the underlying layer of fascia. The fascia was incised in the midline and the incision extended laterally with Keith scissors. The superior aspect of the fascial incision was then grasped with the Tawanda clamps elevated, and the underlying rectus muscles dissected off bluntly. Attention was then turned to the inferior aspect of this incision, which in a similar fashion, was grasped, tented up with the Tawanda clamps, and the rectus muscle dissected off bluntly. The rectus muscles were then in the midline, and the peritoneum identified, tented up, and entered sharply with Metzenbaum scissors. The peritoneal incision was then extended superiorly and inferiorly with good visualization of the bladder. The Jermaine retractor was then inserted and the vesicouterine peritoneum identified, grasped with pickups, and entered sharply with Metzenbaum scissors. This incision was then extended laterally and the bladder flap created digitally. The bladder blade was then reinserted and the lower uterine uterine segment incised in a transverse fashion with the scalpel. The uterine incision was then extended laterally digitally. The bladder blade was removed and the infant's head delivered atraumatically. The nose and mouth were suctioned with DeLee suction trap and the cord clamped and cut. They infant was handed off to the nurses in attendance. The placenta was removed and the uterus cleared of all clots and debris. The uterine incision was repaired with 0 chromic in a running locking fashion. A second layer of the same suture was used to obtain excellent hemostasis. Two [id number] stitches were placed inferior to the hysterotomy; excellent hemostasis was noted. Bladder flap was repaired with 3-0 Vicryl in a running stitch and the uterus returned to the abdomen. The gutters were cleared of all clots and the peritoneum closed with 2-0 Vicryl. The fascia was reapproximated with 0 Vicryl in a running fashion. The subcutaneous layer was closed with 2-0 chromic. The skin was closed with a running subcuticular stitch using 4-0 Monocryl. Shared with patient that future trial of labor after section would not be recommended secondary to her bony structure and history of LGA . The patient tolerated the procedure well. Sponge lap and needle counts were correct x2. 2 g of Ancef was given at beginning a procedure. The patient was taken to the recovery room in stable condition. Same procedure as scheduled: Yes
[2021-06-25] MEDS: CEFAZOLIN 2 GM/20 ML SYRINGE IV (23:23)
[2021-06-25] MEDS: ACETAMINOPHEN IV 1,000 MG/100 ML VIAL 400 MG IV (23:30)
--- NOTE | 2021-06-25 23:38 | SUR.OPER ---
Supine on Padded OR bed, head on pillow, safety belt at thigh, arms secured on padded arm boards at <90 degrees abduction. Bump under right buttock. Legs uncrossed with pillow under knees, gel pad to heels, tape over blanket to lower legs.
--- NOTE | 2021-06-25 23:42 | SUR.OPER ---
FHT's 155, 152 after pushing baby up. Cord blood x 2 and placenta to OB with OB RN.
[2021-06-25] MEDS: BUPIVACAINE 0.25% (PF) VIAL 30 ML INJ (23:46)
--- NOTE | 2021-06-25 23:53 | SUR.OPER ---
TOB 2353, live male
[2021-06-26] MEDS: LACTATED RINGERS 1,000 ML 100 ML IV ×3 (00:07→14:32)
[2021-06-26 01:00] VITALS: BP 129/68; PULSE 95; PULSE 98; RESP 12; RESP 23; TEMP 37.3; TEMP 37.4; O2SAT 97; O2SAT 98
[2021-06-26 01:05] VITALS: BP 132/57; PULSE 98; RESP 16; O2SAT 97
[2021-06-26 01:10] VITALS: BP 123/63; PULSE 94; RESP 25; O2SAT 96
[2021-06-26 01:15] VITALS: BP 138/69; PULSE 92; RESP 15; O2SAT 96
[2021-06-26] MEDS: OXYCODONE IR 5 MG TABLET PO ×3 (01:15→18:12)
[2021-06-26 01:20] VITALS: BP 123/65; PULSE 88; RESP 16; TEMP 36.9; O2SAT 98
[2021-06-26] MEDS: ONDANSETRON 4 MG/2 ML INJ IV ×2 (05:04→15:33)
[2021-06-26] MEDS: LANOLIN OINT 7 GM 1 APPLIC TOP (05:06)
[2021-06-26 05:41] LABS: Add Manual Diff / Slide Review NO; Basophils Absolute Auto 0 /uL (0-100); Basophils Percent Auto 0.2 % (0-2); Eosinophils Absolute Auto 0 /uL (0-450); Hematocrit 26.3 % (36-46); Hemoglobin 8.9 g/dL (12.0-16.0); Lymphocytes Absolute Auto 1200 /uL (1100-4500); Lymphocytes Percent Auto 6.3 % (25-40); Mean Corpuscular HGB Conc 33.7 % (30-36); Mean Corpuscular Hemoglobin 30.6 PG (26-34); Mean Corpuscular Volume 90.8 fL (80-100); Monocytes Absolute Auto 1100 /uL (0-900); Monocytes Percent Auto 5.7 % (3-14); Neutrophils Absolute Auto 16300 /uL (1500-7000); Neutrophils Percent Auto 87.8 % (50-75); Platelet Count 177 X10^3/uL (150-400); Red Cell Distribution Width 13.1 % (11.6-14.8); White Blood Cell Count 18.6 X10^3/uL (4.5-11.0)
[2021-06-26 05:47] LABS: Magnesium 4.8 mg/dL (1.6-2.3)
[2021-06-26] MEDS: METOCLOPRAMIDE 10 MG/2 ML INJ IV (07:59)
[2021-06-26] MEDS: MAGNESIUM SULFATE 20 GM/500 ML IV.SOLN IV ×2 (08:49→20:04)
[2021-06-26] MEDS: IBUPROFEN 600 MG TABLET PO ×3 (09:03→20:21)
[2021-06-26] MEDS: PRENATAL VIT,CALC/IRON/FOLIC 1 TABLET 1 TAB PO (09:03)
[2021-06-26 10:37] LABS: Magnesium 5.4 mg/dL (1.6-2.3)
[2021-06-26 13:48] LABS: Magnesium 5.6 mg/dL (1.6-2.3)
[2021-06-26 17:51] LABS: Magnesium 5.6 mg/dL (1.6-2.3)
--- NOTE | 2021-06-26 18:41 | PM.OBPN.1 ---
Subjective - OB Subjective Narrative: Doing well, pain controlled with medications. Magnesium infusing; levels have been therapeutic. Denies headache, right upper quadrant pain, or visual changes. She did have some nausea and vomiting early this morning that was controlled with medications. Blood pressures have been normotensive since delivery, 120-130/60s. Funes is in place, urine is light, straw colored. She has not passed flatus. Has an appetite, has not tried a full diet yet. Reports that breast feeding is going well. Lochia less than menses. Date Patient Seen: 06/26/21 Time Patient Seen: 18:42 Exam Vital Signs (past 8 hours): Oxygen Delivery Method Room Air Narrative Exam Narrative: General: NAD Skin: Color unremarkable, no rash nor lesions HEENT: Neck supple with midline trachea Lungs: CTAB Heart: Normal rate and regular rhythm, S1, S2 normal, no murmurs, click, rub or gallop Abdomen: FF, U-3, soft, non-tender, +BS, Incision with bandage in place, clean, dry, intact. Extremities: No edema, no cyanosis Objective Labs Result Diagrams: 06/26/21 05:30 06/24/21 21:55 Labs: Laboratory Results - last 24 hr 06/25/21 06/25/21 06/26/21 19:55 22:50 01:45 WBC 17.7 H RBC 3.75 L Hgb 11.5 L Hct 34.0 L MCV 90.8 MCH 30.6 MCHC 33.7 RDW 13.5 Plt Count 190 Neut % (Auto) 87.9 H Lymph % (Auto) 5.7 L [place] % (Auto) 6.1 Eos % (Auto) 0.0 L Baso % (Auto) 0.3 Neut # (Auto) 44241 H Lymph # (Auto) 1000 L [place] # (Auto) 1100 H Eos # (Auto) 0 Baso # (Auto) 100 Magnesium 4.0 H U Random Total Protein 84 H Urine Creatinine 139.7 Protein/Creatinin Ratio 0.60 06/26/21 06/26/21 06/26/21 05:30 05:30 09:30 WBC 18.6 H RBC 2.90 L Hgb 8.9 L Hct 26.3 L MCV 90.8 MCH 30.6 MCHC 33.7 RDW 13.1 Plt Count 177 Neut % (Auto) 87.8 H Lymph % (Auto) 6.3 L [place] % (Auto) 5.7 Eos % (Auto) 0.0 L Baso % (Auto) 0.2 Neut # (Auto) 34732 H Lymph # (Auto) 1200 [place] # (Auto) 1100 H Eos # (Auto) 0 Baso # (Auto) 0 Magnesium 4.8 H 5.4 H* U Random Total Protein Urine Creatinine Protein/Creatinin Ratio 06/26/21 06/26/21 13:25 17:29 WBC RBC Hgb Hct MCV MCH MCHC RDW Plt Count Neut % (Auto) Lymph % (Auto) [place] % (Auto) Eos % (Auto) Baso % (Auto) Neut # (Auto) Lymph # (Auto) [place] # (Auto) Eos # (Auto) Baso # (Auto) Magnesium 5.6 H* 5.6 H* U Random Total Protein Urine Creatinine Protein/Creatinin Ratio Assessment & Plan Plan Comments: 1.? Status post primary LTCS at 39w0d 2.? 3.? Preeclampsia with severe features, resolving 4.? Rh negative 5. Anxiety 6. PTSD Plan: Routine care. Will administer RhoGAM. Plan to discontinue magnesium at 24 hours . Magnesium levels have been therapeutic to date. Will recheck CBC and CMP in the morning. Following urine output closely. Time Spent With Patient Time with patient: Greater than 35 minutes
[2021-06-26] MEDS: ACETAMINOPHEN 325 MG TABLET 650 MG PO (20:21)
[2021-06-26] MEDS: OXYCODONE IR 5 MG TABLET 10 MG PO (22:06)
[2021-06-26 22:44] LABS: Magnesium 5.4 mg/dL (1.6-2.3)
[2021-06-27] MEDS: IBUPROFEN 600 MG TABLET PO ×2 (02:09→10:56)
[2021-06-27] MEDS: ACETAMINOPHEN 325 MG TABLET 650 MG PO ×2 (02:09→13:45)
[2021-06-27] MEDS: OXYCODONE IR 10 MG TABLET PO ×2 (06:37→10:56)
[2021-06-27 06:47] LABS: Add Manual Diff / Slide Review NO; Basophils Absolute Auto 0 /uL (0-100); Basophils Percent Auto 0.2 % (0-2); Eosinophils Absolute Auto 200 /uL (0-450); Eosinophils Percent Auto 1.2 % (2-4); Hematocrit 26.8 % (36-46); Lymphocytes Absolute Auto 2000 /uL (1100-4500); Lymphocytes Percent Auto 12.9 % (25-40); Mean Corpuscular HGB Conc 33.7 % (30-36); Mean Corpuscular Hemoglobin 30.7 PG (26-34); Monocytes Absolute Auto 1000 /uL (0-900); Monocytes Percent Auto 6.5 % (3-14); Neutrophils Absolute Auto 12100 /uL (1500-7000); Neutrophils Percent Auto 79.2 % (50-75); Platelet Count 176 X10^3/uL (150-400); Red Blood Cell Count 2.95 X10^6/uL (4.0-5.2); Red Cell Distribution Width 13.7 % (11.6-14.8); White Blood Cell Count 15.3 X10^3/uL (4.5-11.0)
[2021-06-27 07:01] LABS: Alanine Aminotransferase 10 IU/L (<35); Albumin 2.9 g/dL (3.5-5.0); Albumin Globulin Ratio 1.1 (1.0-2.8); Alkaline Phosphatase 98 U/L (38-126); Aspartate Aminotransferase 34 IU/L (14-36); BUN Creatinine Ratio 10.5 (6-22); Bilirubin Total 0.3 mg/dL (0.2-1.3); Blood Urea Nitrogen 8 mg/dL (7-17); Calcium 7.1 mg/dL (8.4-10.2); Carbon Dioxide 27 mmol/L (22-32); Chloride 101 mmol/L (98-107); Estimated Glomerular Filt Rate > 60.0 mL/min (>60); Globulin 2.7 g/dL (1.7-4.1); Glucose 77 mg/dL (70-100); HEMOLYSIS < 15 (0-50); Potassium 3.8 mmol/L (3.4-5.1); Sodium 133 mmol/L (137-145); Total Protein 5.6 g/dL (6.3-8.2)
--- NOTE | 2021-06-27 12:01 | PM.OBDS.1 ---
Discharge Providers Provider Date of admission: 06/24/21 20:54 Discharge Date: 06/27/21 Primary care physician: Trudy Weiss MD Consults: 06/26/21 01:43 Consult to Revenue Settlements Administrator Routine Comment: Discharge provider: Tamy Barros MD Summary Hospital Course Date Patient Seen: 06/27/21 Time Patient Seen: 12:30 Diagnoses: 1.? Status post primary LTCS at 39w0d 2.? 3.? Preeclampsia with severe features, resolving 4.? Rh negative 5.? Anxiety 6.? PTSD Hospital Course: Unremarkable. Mother is well. Tolerating full diet with no nausea vomiting. Ambulating well. Lochia less than menses. Patient did receive magnesium postoperatively x 24 hours with therapeutic levels. Denies headache, nausea, vomiting, right upper quadrant pain, or visual changes. Blood pressures have returned to normal. She has received RhoGAM. On day of discharge, she is afebrile with stable vital signs throughout. Peripartum Data Infant Delivery Method: Emergency Section Procedures: 1. Primary LTCS, 06/25/21, Dr. Barros, no complications 2. Epidural, 06/25/21, Dr. Morrow, no complications Status at Discharge Cognitive/behavioral status at discharge: at baseline, oriented Functional status at discharge: independent ambulation Overall status at discharge: patient is progressing back to baseline Time Spent with Patient Time attestation: Total time spent providing and/or coordinating discharge services: 35 mintues Objective Labs Result Diagrams: 06/27/21 06:11 06/27/21 06:11 Labs: Laboratory Results - last 24 hr 06/26/21 06/26/21 06/26/21 13:25 17:29 22:20 WBC RBC Hgb Hct MCV MCH MCHC RDW Plt Count Neut % (Auto) Lymph % (Auto) [place] % (Auto) Eos % (Auto) Baso % (Auto) Neut # (Auto) Lymph # (Auto) [place] # (Auto) Eos # (Auto) Baso # (Auto) Sodium Potassium Chloride Carbon Dioxide BUN Creatinine Estimated GFR BUN/Creatinine Ratio Glucose Calcium Magnesium 5.6 H* 5.6 H* 5.4 H* Total Bilirubin AST ALT Alkaline Phosphatase Total Protein Albumin Globulin Albumin/Globulin Ratio Maternal Bleed KB Hemoglobin 06/27/21 06/27/21 06/27/21 06:11 06:11 06:11 WBC 15.3 H RBC 2.95 L Hgb 9.0 L Hct 26.8 L MCV 91.0 MCH 30.7 MCHC 33.7 RDW 13.7 Plt Count 176 Neut % (Auto) 79.2 H Lymph % (Auto) 12.9 L [place] % (Auto) 6.5 Eos % (Auto) 1.2 L Baso % (Auto) 0.2 Neut # (Auto) 96114 H Lymph # (Auto) 2000 [place] # (Auto) 1000 H Eos # (Auto) 200 Baso # (Auto) 0 Sodium 133 L Potassium 3.8 Chloride 101 Carbon Dioxide 27 BUN 8 Creatinine 0.76 Estimated GFR > 60.0 BUN/Creatinine Ratio 10.5 Glucose 77 Calcium 7.1 L Magnesium Total Bilirubin 0.3 AST 34 ALT 10 Alkaline Phosphatase 98 Total Protein 5.6 L Albumin 2.9 L Globulin 2.7 Albumin/Globulin Ratio 1.1 Maternal Bleed Negative KB Hemoglobin 06/27/21 06:11 WBC RBC Hgb Hct MCV MCH MCHC RDW Plt Count Neut % (Auto) Lymph % (Auto) [place] % (Auto) Eos % (Auto) Baso % (Auto) Neut # (Auto) Lymph # (Auto) [place] # (Auto) Eos # (Auto) Baso # (Auto) Sodium Potassium Chloride Carbon Dioxide BUN Creatinine Estimated GFR BUN/Creatinine Ratio Glucose Calcium Magnesium Total Bilirubin AST ALT Alkaline Phosphatase Total Protein Albumin Globulin Albumin/Globulin Ratio Maternal Bleed KB Hemoglobin Cancelled Exam Vital Signs (past 8 hours): Oxygen Delivery Method Room Air Narrative Exam Narrative: General: ? NAD Skin: ? Color unremarkable, no rash nor lesions HEENT:? Neck supple with midline trachea Lungs: ? CTAB Heart: ? Normal rate and regular rhythm, S1, S2 normal, no murmurs, click, rub or gallop Abdomen:? FF, U-3, soft, non-tender, +BS, ? Incision clean, dry, intact. Extremities:? No edema, no cyanosis Discharge Plan Discharge Plan Patient Disposition: Home Provider Discharge Comment: 1. Routine care 2. No driving for 2 weeks. 3. Call or return for uncontrolled pain, fever, intractable nausea or vomiting, trouble with urination, heavy vaginal bleeding greater than 1 pad per hour, suicidal/homicidal thoughts, signs or symptoms of infection, or any other concerns. Discharge orders & Medications Prescriptions: New hydrocodone-acetaminophen 5-325 mg Tablet 1 tab PO Q4H PRN (Reason: Pain, Moderate (4-6)) Qty: 45 0RF ibuprofen 600 mg Tablet 600 mg PO Q6H PRN (Reason: Fever/Mild Pain (1-3)) Qty: 90 3RF Prenatabs Rx 29 mg iron- 1 mg Tablet 1 tab PO DAILY Qty: 90 3RF docusate sodium 100 mg capsule 100 mg PO BID PRN (Reason: constipation) Qty: 60 0RF oxycodone 10 mg tablet 10 mg PO Q6H PRN (Reason: pain) Qty: 45 0RF Discontinued Microgestin 1.5/30 (21) 1.5-30 mg-mcg tablet 1 tab PO DAILY 0RF hydroxyzine HCl 10 mg tablet 10 mg PO DAILY PRN (Reason: Sleep) 0RF spironolactone 50 mg tablet 50 mg PO DAILY 0RF Follow up/Referrals: Tamy Barros MD [Physician] - Trudy Weiss MD [Primary Care Provider] - Diet/Activity/Treatments Diet: Diet as Tolerated Visit Report/Discharge Packet Instructions: Pre-eclampsia and -induced Hypertension (Alternative Therapy), DI for Discharge Data Primary Care Provider: Trudy Weiss
[2021-06-27] MEDS: RHO(D) IMMUNE GLOBULIN 1,500 UNIT SYRINGE 1500 UNIT IM (14:00)
[2021-06-27] MEDS: MEASLES,MUMPS,RUBELLA VACC/PF 0.5 ML VIAL SUBCUT (14:00)
== END 2021-06-27 14:25 | disposition home or self-care (01) | DRG 540 ==
PROVIDERS: Admitting Provider Student in an Organized Health Care Education/Training Program; Family Provider Family Medicine; PCP Family Medicine; Referring Provider Student in an Organized Health Care Education/Training Program; Visit Provider Student in an Organized Health Care Education/Training Program
PROC: 10D00Z1 Extraction of Products of Conception, Low, Open Approach (ICD-10-PCS; CPT 59514; principal; 2021-06-25 23:30)
DX: O14.14 Severe pre-eclampsia complicating childbirth (principal); Z3A.39 39 weeks gestation of pregnancy; Z37.0 Single live birth; O66.2 Obstructed labor due to unusually large fetus; O64.8XX0 Obstructed labor due to other malposition and malpresentation, not applicable or unspecified; O65.9 Obstructed labor due to maternal pelvic abnormality, unspecified; O99.824 Streptococcus B carrier state complicating childbirth; O36.0930 Maternal care for other rhesus isoimmunization, third trimester, not applicable or unspecified; Z20.822 Contact with and (suspected) exposure to COVID-19; O99.344 Other mental disorders complicating childbirth; F41.9 Anxiety disorder, unspecified; F43.10 Post-traumatic stress disorder, unspecified; O13.3 Gestational [pregnancy-induced] hypertension without significant proteinuria, third trimester; Z3A.38 38 weeks gestation of pregnancy
CPT/HCPCS: 01967; 01968; 36415; 59025; 59050; 59514; 80053; 82570; 83735; 84156; 84450; 84550; 85025; 85461; 86850; 86900; 86901; 87635; C9803; G0379; J0131; J0290; J0690; J2250; J2274; J2405; J2590; J2704; J2765; J2790; J3010; J3475

== ENCOUNTER 2023-12-13 08:41 | Emergency (ER) | payer OTHER, MEDICAID, SELFPAY ==
[2023-12-13] VITALS (10 sets, daily range): BP systolic 126–165; BP diastolic 65–93; PULSE 79–126; RESP 18; TEMP 36.9; O2SAT 98–99; BMI 28.7
--- NOTE | 2023-12-13 08:48 | DI.US.S_ITS ---
PROCEDURE: US OB <= 14 WEEKS FETUS INDICATIONS: vaginal bleed OUTSIDE/PRIOR DATING DATA: Last menstrual period (LMP): 10/29/2023. LMP-based estimated date of delivery (APRIL): 08/04/2024. First dating scan (date and location): 12/13/2023. TECHNIQUE: Real-time scanning was performed of the fetus and maternal pelvic organs, with image documentation. Endovaginal scanning was also performed to better visualize the fetus and maternal ovaries. COMPARISON: [facility], OB <= 14 WEEKS FETUS, 11/21/2020, 11:26. FINDINGS: Embryo: [place]-rump length is 0.5 cm with estimated gestational age of 6 weeks and 2 days. A yolk sac is present. Heart rate: 109 Estimated gestational age is 6 weeks and 3 days Composite gestational age today is 6 weeks and 2 days Small subchorionic hemorrhage measuring 0.9 x 0.8 x 1 cm. Maternal organs: Ovaries appear within normal limits. There is a right-sided corpus luteal cyst measuring 1.9 cm. IMPRESSION: 1. Single living intrauterine with estimated gestational age of 6 weeks and 2 days based on today's ultrasound. Heart rate is 109 BPM. 2. Small subchorionic hemorrhage measuring 0.9 x 0.8 x 1 cm. We strive to produce accurate, complete, and clear reports of imaging services. To assist us in improving patient care, this report was composed using standard report templates and voice recognition software. Therefore, it may contain abnormal punctuation, insertions and/or omissions. Occasional wrong-word or sound-alike substitutions may occur. Though we review the report and make efforts to correct it, we do recommend that the report be read carefully in proper context to recognize any text inaccuracies. Dictated by: Harman Gabriel M.D. on 12/13/2023 at 8:54 Approved by: Harman Gabriel M.D. on 12/13/2023 at 8:58
[2023-12-13 09:26] LABS: Add Manual Diff / Slide Review NO; Basophils Absolute Auto 100 /uL (0-100); Basophils Percent Auto 0.6 % (0-2); Eosinophils Absolute Auto 100 /uL (0-450); Eosinophils Percent Auto 0.9 % (2-4); Hematocrit 40.5 % (36-46); Hemoglobin 13.8 g/dL (12.0-16.0); Lymphocytes Absolute Auto 2800 /uL (1100-4500); Lymphocytes Percent Auto 29.3 % (25-40); Mean Corpuscular Hemoglobin 30.2 PG (26-34); Mean Corpuscular Volume 88.9 fL (80-100); Monocytes Absolute Auto 600 /uL (0-900); Monocytes Percent Auto 6.2 % (3-14); Neutrophils Absolute Auto 6000 /uL (1500-7000); Platelet Count 269 X10^3/uL (150-400); Red Blood Cell Count 4.56 X10^6/uL (4.0-5.2); Red Cell Distribution Width 12.6 % (11.6-14.8); White Blood Cell Count 9.5 X10^3/uL (4.5-11.0)
[2023-12-13 09:38] LABS: Bacteria Urine Moderate (10-30); Ictotest Urine Negative (Negative); RBC Urine 1-5/HPF (0-5/HPF); Squamous Epithelial Cell Urine 1-5 /HPF (0-5/HPF); Urine Volume 10mL (spun); WBC Urine 1-5/HPF (0-5/HPF)
[2023-12-13 09:40] LABS: Culture Indicated Urine Cult Not Indicated
[2023-12-13 09:45] LABS: Alanine Aminotransferase 16 IU/L (<35); Albumin 4.8 g/dL (3.5-5.0); Albumin Globulin Ratio 1.5 (1.0-2.8); Alkaline Phosphatase 38 U/L (38-126); Aspartate Aminotransferase 34 IU/L (14-36); BUN Creatinine Ratio 14.3 (6-22); Bilirubin Total 0.8 mg/dL (0.2-1.3); Blood Urea Nitrogen 9 mg/dL (7-17); Calcium 9.3 mg/dL (8.4-10.2); Carbon Dioxide 21 mmol/L (22-32); Chloride 103 mmol/L (98-107); Estimated Glomerular Filt Rate > 60 mL/min (>60); Globulin 3.1 g/dL (1.7-4.1); Glucose 89 mg/dL (70-100); Potassium 3.8 mmol/L (3.4-5.1); Sodium 135 mmol/L (137-145); Total Protein 7.9 g/dL (6.3-8.2)
[2023-12-13 09:46] LABS: HEMOLYSIS 61 (0-50)
[2023-12-13 10:25] LABS: HCG Quantitative /Beta subunit 39674 mIU/mL
--- NOTE | 2023-12-13 10:36 | ED.PREGNANCY ---
HPI - General Chief complaint: Vaginal Bleeding Stated complaint: 6.5wk Preg, Spotting getting worse Time Seen by Provider: 12/13/23 08:44 Source: patient Mode of arrival: Ambulatory Limitations: no limitations History of Present Illness HPI Narrative: 28-year-old female reported 6-1/2 weeks by dates. Patient started having some vaginal bleeding with wiping starting , Wednesday the color change to brown in his own sort of a plum color and slightly increased. Patient is describing small amount of bleeding or spotting. Has you 1 prior patient was delivered via emergency at 38 weeks with a history of preeclampsia. Patient has been referred for care but has not had an ultrasound. She is taking vitamins and baby aspirin daily. Related Data Previous Rx's Medication Instructions Recorded vitamin 1 tab PO DAILY #90 tabs 06/27/21 no.76-iron,carbonyl 29 mg iron-folic acid 1 mg tablet (Prenatabs Rx) Allergies Allergy/AdvReac Type Severity Reaction Status Date / Time No Known Drug Allergies Allergy Unverified 10/19/22 08:58 Review of Systems Review of Systems ROS Unobtainable: All systems reviewed & are unremarkable except as noted in HPI and below Exam Initial Vital Signs Initial Vital Signs: Vital Signs Temperature 98.4 F 12/13/23 08:47 Pulse Rate 126 H 12/13/23 08:47 Respiratory Rate 18 12/13/23 08:47 Blood Pressure 165/93 H 12/13/23 08:47 Pulse Oximetry 99 12/13/23 08:47 Oxygen Delivery Method Room Air 12/13/23 08:47 Course Orders Ordered: ED Orders 12/13/23 08:48 US OB <= 14 weeks fetus Stat 12/13/23 09:02 Ictotest Urine Stat Urine Microscopic Stat 12/13/23 09:15 ABO RH Type Stat Complete Blood Count AUTO DIFF Stat Comprehensive Metabolic Panel Stat HCG Quantitative /Beta subunit Stat Discontinued Medications Rho Immune Globulin (Rho(D) Immune Globulin 1,500 Unit Syringe) 1,500 unit IM NOW ONE Stop: 12/13/23 10:56 Last Admin: 12/13/23 11:21 Dose: 1,500 unit Documented By: MLJeremias Vital Signs Vital signs: Vital Signs - 8 hr 12/13/23 10:00 12/13/23 10:00 12/13/23 10:30 Pulse Rate 88 79 Blood Pressure 155/65 H Pulse Oximetry 98 98 12/13/23 10:30 12/13/23 10:31 12/13/23 10:31 Pulse Rate 80 Blood Pressure 126/65 136/70 Pulse Oximetry 98 12/13/23 10:56 12/13/23 11:00 Pulse Rate 81 Blood Pressure 151/78 H Pulse Oximetry 99 MDM - OB/Uterine Contractions Lab Data 12/13/23 09:15 12/13/23 09:15 Labs: Lab Results 12/13/23 12/13/23 Range/Units 09:02 09:15 WBC 9.5 (4.5-11.0) X10^3/uL RBC 4.56 (4.0-5.2) X10^6/uL Hgb 13.8 (12.0-16.0) g/dL Hct 40.5 (36-46) % MCV 88.9 (80-100) fL MCH 30.2 (26-34) PG MCHC 34.0 (30-36) % RDW 12.6 (11.6-14.8) % Plt Count 269 (150-400) X10^3/uL Neut % (Auto) 63.0 (50-75) % Lymph % (Auto) 29.3 (25-40) % [place] % (Auto) 6.2 (3-14) % Eos % (Auto) 0.9 L (2-4) % Baso % (Auto) 0.6 (0-2) % Neut # (Auto) 6000 (3053-4979) /uL Lymph # (Auto) 2800 (9246-5479) /uL Churchill # (Auto) 600 (0-900) /uL Eos # (Auto) 100 (0-450) /uL Baso # (Auto) 100 (0-100) /uL Sodium 135 L (137-145) mmol/L Potassium 3.8 (3.4-5.1) mmol/L Chloride 103 (98-107) mmol/L Carbon Dioxide 21 L (22-32) mmol/L BUN 9 (7-17) mg/dL Creatinine 0.63 (0.52-1.04) mg/dL Estimated GFR > 60 (>60) mL/min BUN/Creatinine Ratio 14.3 (6-22) Glucose 89 (70-100) mg/dL Calcium 9.3 (8.4-10.2) mg/dL Total Bilirubin 0.8 (0.2-1.3) mg/dL AST 34 (14-36) IU/L ALT 16 (<35) IU/L Alkaline Phosphatase 38 (38-126) U/L Total Protein 7.9 (6.3-8.2) g/dL Albumin 4.8 (3.5-5.0) g/dL Globulin 3.1 (1.7-4.1) g/dL Albumin/Globulin Ratio 1.5 (1.0-2.8) HCG, Quant 78165 mIU/mL Ur Bilirubin Confirm Negative (Negative) Urine RBC 1-5/hpf (0-5/HPF) Urine WBC 1-5/hpf (0-5/HPF) Ur Squamous Epith Cells 1-5 /hpf D (0-5/HPF) Urine Bacteria Moderate (10-30) H (None) Ur Culture Indicated? Cult not indicated Vol Urine Centrifuged 10ml (spun) Blood Type B Negative Point of Care Testing Test Results Positive Urine Dip Bedside Urine Glucose Negative Bedside Urine Bilirubin + 1 Bedside Urine Ketone - Negative Urine Specific [place] 1.015 Bedside Urine Occult Blood +++ Bedside Urine pH 6.0 Bedside Urine Protein +/- 15 Bedside Urine Urobilinogen - Negative Bedside Urine Nitrite - Negative Bedside Urine Leukocytes +/- 15 Esterase MDM Narrative Medical decision making narrative: 28-year-old female with prior emergent for preeclampsia last menstrual period was 10/29/2023 estimated date of delivery on last menstrual periods 08/04/2024. Patient presents with vaginal bleeding/spotting approximately 6 weeks by dates. Labs show white count of 9.5 hemoglobin of 13.8 platelets of 269. Sodium 135 potassium 3.8 chloride of 103 CO2 of 21 BUN 9 creatinine 0.63 glucose 89, calcium 9.3 LFTs are negative, hCG is 39,674 Point of care urine shows blood leukocyte esterase no nitrates. Patient has 1-5 red cells, 1-5 white cells 1-5 squamous, moderate bacteria. Patient was Rh negative June of 2021. Received RhoGAM with her last . We will give RhoGAM. ultrasound shows single living intrauterine with estimated gestational age of 6 weeks and 2 days, heart rates 109, small subchorionic hemorrhage measuring 0.9 x 0.8 by 1 cm. Patient has single intrauterine there is a small subchorionic hemorrhage, patient is to follow up with providers for recheck and repeat imaging. Pelvic rest. Reviewed findings with patient answered all questions. Patient has not seen Dr. Landers but is supposed to follow with 1 of her partners asked that she call to set up follow-up. Discharge Plan Departure Patient Disposition: Home Clinical Impression: Vaginal bleeding in Instructions: DI for Vaginal Bleeding During Activity Restrictions/Additional Instructions: Follow up with Dr. Landers, call to set up an appointment. You did receive a dose of RhoGAM today. Your imaging today does show a intrauterine approximately 6 weeks and 2 days. There is a small subchorionic hemorrhage maximum size is 1 cm. Recommended they have pelvic rest, no heavy lifting, no sexual activity. You may use pads but do not use tampons. Please return for fevers rapidly worsening pain increasing bleeding, going through more than a pad once hourly, lightheadedness or passing out, new chest pain or shortness of breath or other new or concerning changes. Prescriptions: No Action Prenatabs Rx 29 mg iron- 1 mg Tablet 1 tab PO DAILY Qty: 90 3RF Referrals: Sugar Landers MD [Physician] - Trudy Weiss MD [Primary Care Provider] - Stand Alone Forms: Patient Portal/API
[2023-12-13] MEDS: RHO(D) IMMUNE GLOBULIN 1,500 UNIT SYRINGE 1500 UNIT IM (11:21)
== END 2023-12-13 11:34 | disposition home or self-care (01) ==
PROVIDERS: Emergency Provider Emergency Medicine; Family Provider Family Medicine; PCP Family Medicine
DX: O20.9 Hemorrhage in early pregnancy, unspecified (principal); Z3A.01 Less than 8 weeks gestation of pregnancy
CPT/HCPCS: 36415; 76801; 76817; 80053; 81003; 81015; 81025; 84702; 85025; 86900; 86901; 96372; 99284; J2790

== ENCOUNTER → 2024-01-07 09:16 | Outpatient (CLI) | payer OTHER, MEDICAID, SELFPAY ==
[2024-01-07 09:56] LABS: Add Manual Diff / Slide Review NO; Basophils Absolute Auto 0 /uL (0-100); Basophils Percent Auto 0.5 % (0-2); Eosinophils Absolute Auto 100 /uL (0-450); Hematocrit 36.8 % (36-46); Hemoglobin 12.7 g/dL (12.0-16.0); Lymphocytes Absolute Auto 2100 /uL (1100-4500); Lymphocytes Percent Auto 20.5 % (25-40); Mean Corpuscular HGB Conc 34.4 % (30-36); Mean Corpuscular Hemoglobin 30.8 PG (26-34); Mean Corpuscular Volume 89.4 fL (80-100); Monocytes Absolute Auto 700 /uL (0-900); Monocytes Percent Auto 6.7 % (3-14); Neutrophils Absolute Auto 7200 /uL (1500-7000); Neutrophils Percent Auto 71.3 % (50-75); Platelet Count 312 X10^3/uL (150-400); Red Blood Cell Count 4.11 X10^6/uL (4.0-5.2); Red Cell Distribution Width 12.9 % (11.6-14.8)
[2024-01-07 10:04] LABS: Hemoglobin A1C% w Est Avg Glu 4.9 % (4.0-6.0)
[2024-01-07 10:06] LABS: Alanine Aminotransferase 16 IU/L (<35); Aspartate Aminotransferase 27 IU/L (14-36); BUN Creatinine Ratio 12.5 (6-22); Blood Urea Nitrogen 7 mg/dL (7-17); Estimated Glomerular Filt Rate > 60 mL/min (>60); Uric Acid 3.1 mg/dL (2.5-6.2)
[2024-01-07 10:28] LABS: Natera Collection Specimen Collected
[2024-01-07 10:39] LABS: Hepatitis B Surface Antigen NEGATIVE s/c (NEGATIVE); Rubella Antibody IgG 49.4 IU/mL (>15)
[2024-01-07 10:56] LABS: HIV 1 & 2 Ab/Ag 4th Gen Combo NEGATIVE (NEGATIVE); Hep C Virus Ab w/Reflex Quant NEGATIVE s/c (NEGATIVE)
[2024-01-08 04:09] LABS: RPR Screen Non Reactive (Non Reactive)
[2024-01-08 08:36] LABS: Varicella IgG Antibody Reactive (Non Reactive)
== END ==
PROVIDERS: Family Provider Family Medicine; PCP Family Medicine; Referring Provider Obstetrics & Gynecology; Visit Provider Obstetrics & Gynecology
DX: O09.299 Supervision of pregnancy with other poor reproductive or obstetric history, unspecified trimester (principal); Z3A.10 10 weeks gestation of pregnancy
CPT/HCPCS: 36415; 80055; 82565; 83036; 84450; 84460; 84520; 84550; 86787; 86803; 86850; 86870; 86886; 86900; 86901; 86902; 87086; 87147; 87389

== ENCOUNTER → 2024-02-25 14:53 | Outpatient (CLI) | payer OTHER, MEDICAID, SELFPAY ==
[2024-02-25 17:53] LABS: Urine N gonorrhoeae NOT DETECTED
[2024-02-25 18:02] LABS: Urine Chlamydia NOT DETECTED
[2024-02-28 13:37] LABS: AFP Value 31.7 ng/mL (.); Insulin Dep Diabetes No (.); OSBR Risk 1IN 10000 (.); Results Report (.); Test Results *Screen Negative* (.)
== END ==
PROVIDERS: Family Provider Family Medicine; PCP Family Medicine; Referring Provider Obstetrics & Gynecology; Visit Provider Obstetrics & Gynecology
DX: Z34.82 Encounter for supervision of other normal pregnancy, second trimester (principal); Z3A.17 17 weeks gestation of pregnancy; Z11.3 Encounter for screening for infections with a predominantly sexual mode of transmission
CPT/HCPCS: 36415; 82105; 87491; 87591

== ENCOUNTER → 2024-03-20 08:42 | Outpatient (CLI) | payer OTHER, MEDICAID, SELFPAY ==
--- NOTE | 2024-03-20 08:43 | DI.US.S_ITS ---
PROCEDURE: US OB >= 14 WEEKS FETUS INDICATIONS: 20 week anatomy scan OUTSIDE/PRIOR DATING DATA: Last menstrual period (LMP): 12/30/2023. LMP-based estimated date of delivery (APRIL): 08/04/2024. Working APRIL First dating scan (date and location): 12/13/2023. Estimated date of delivery (APRIL) from first dating scan: 08/05/2024. TECHNIQUE: Real-time scanning was performed of the fetus, with image documentation and biometric measurements. COMPARISON: [facility], , OB <= 14 WEEKS FETUS, 01/28/2024, 9:47. [facility], , OB >= 14 WEEKS FETUS, 02/24/2021, 10:46. FINDINGS: General: A single living intrauterine gestation is present. Presentation: Vertex. Placenta: Placental position is anterior , without previa. Amniotic fluid index: 17.2 cm, normal range is 5-24 cm. Single deepest vertical pocket is 5.5 cm. heart rate: 162 beats per minute. Maternal cervical canal: 4.2 cm cm long. Normal lower limit is 2.5 cm. biometrics: Biparietal diameter: 5 cm, 21 weeks and 1 day Head circumference: 18.5 cm, 20 weeks and 6 days Abdominal circumference: 16.6 cm, 21 weeks and 4 days Femur length: 3.3 cm, 20 weeks and 2 days Clinically estimated gestational age: 20 weeks and 3 days Composite gestational age from present scan: 21 weeks Estimated weight and percentile: 77% Anatomic survey: Neuro: Ventricles are non-dilated at less than 10 mm. Cisterna magna is normal at 3-11 mm. Cerebellum is normal in size and morphology. Nuchal skin fold: Normal at less than 6 mm between 14-21 weeks gestational age. Face: Nose and lips, facial profile are normal. Spine: No evidence for spina bifida. Heart: 4-chambered heart is present, with normal ventricular outflow tracts. Diaphragm: Diaphragm is intact. Stomach: Left-sided stomach is present. Kidneys: No hydronephrosis. Normal is less than 5 mm in 2nd trimester, less than 7 mm in 3rd trimester. Cord: 3-vessel cord has orthotopic insertion. Bladder: Normal in size. Extremities: All 4 extremities identified. IMPRESSION: Living intrauterine gestation with normal growth, EFW at the 77th percentile. No significant abnormalities on routine anatomic survey. Normal BAILEY. Vertex presentation. Dictated by: Jesus Wynn M.D. on 03/20/2024 at 14:19 Approved by: Jesus Wynn M.D. on 03/20/2024 at 14:23
== END ==
LOC: US 08:43
PROVIDERS: Family Provider Family Medicine; PCP Family Medicine; Referring Provider Obstetrics & Gynecology; Visit Provider Obstetrics & Gynecology
DX: Z34.82 Encounter for supervision of other normal pregnancy, second trimester (principal); Z3A.21 21 weeks gestation of pregnancy
CPT/HCPCS: 76811

== ENCOUNTER → 2024-04-17 06:58 | Outpatient (CLI) | payer OTHER, SELFPAY ==
[2024-04-17 08:35] LABS: Hematocrit 35.9 % (36-46); Hemoglobin 12.3 g/dL (12.0-16.0)
[2024-04-17 08:58] LABS: GTT (PREG) 1 Hour PP 50gm Dose 95 mg/dL (76-139)
== END ==
PROVIDERS: Family Provider Family Medicine; PCP Family Medicine; Referring Provider Obstetrics & Gynecology; Visit Provider Obstetrics & Gynecology
DX: Z34.82 Encounter for supervision of other normal pregnancy, second trimester (principal); Z3A.26 26 weeks gestation of pregnancy
CPT/HCPCS: 82950; 85014; 85018; 86850

== ENCOUNTER 2024-06-02 14:42 | Outpatient (CLI) | payer OTHER, SELFPAY | END 2024-06-02 15:50 | disposition home or self-care (01) | LOC: OB 06-05 14:46 | PROVIDERS: Family Provider Family Medicine; PCP Family Medicine; Referring Provider Obstetrics & Gynecology; Visit Provider Obstetrics & Gynecology | DX: O10.913 Unspecified pre-existing hypertension complicating pregnancy, third trimester (principal); Z3A.31 31 weeks gestation of pregnancy | CPT/HCPCS: 59025; G0378; G0379 ==

== ENCOUNTER 2024-06-09 09:00 | Outpatient (CLI) | payer OTHER, SELFPAY | END 2024-06-09 09:56 | disposition home or self-care (01) | LOC: LABOR 09:42 → OB 15:00 | PROVIDERS: Family Provider Family Medicine; PCP Family Medicine; Referring Provider Obstetrics & Gynecology; Visit Provider Obstetrics & Gynecology | DX: O10.913 Unspecified pre-existing hypertension complicating pregnancy, third trimester (principal); Z3A.32 32 weeks gestation of pregnancy | CPT/HCPCS: 59025; G0378; G0379 ==

== ENCOUNTER 2024-06-16 09:47 | Outpatient (CLI) | payer OTHER, SELFPAY | END 2024-06-16 10:32 | disposition home or self-care (01) | LOC: LABOR 10:06 → OB 12:18 | PROVIDERS: Family Provider Family Medicine; PCP Family Medicine; Referring Provider Obstetrics & Gynecology; Visit Provider Obstetrics & Gynecology | DX: O10.913 Unspecified pre-existing hypertension complicating pregnancy, third trimester (principal); Z3A.33 33 weeks gestation of pregnancy | CPT/HCPCS: 59025; G0378; G0379 ==

== ENCOUNTER 2024-06-23 08:57 | Outpatient (CLI) | payer OTHER, SELFPAY | END 2024-06-23 09:25 | disposition home or self-care (01) | LOC: LABOR 09:17 → OB 10:06 | PROVIDERS: Family Provider Family Medicine; PCP Family Medicine; Referring Provider Obstetrics & Gynecology; Visit Provider Obstetrics & Gynecology | DX: O10.913 Unspecified pre-existing hypertension complicating pregnancy, third trimester (principal); Z3A.34 34 weeks gestation of pregnancy; Z87.59 Personal history of other complications of pregnancy, childbirth and the puerperium | CPT/HCPCS: 59025; G0378; G0379 ==

== ENCOUNTER 2024-06-30 10:10 | Outpatient (CLI) | payer OTHER, SELFPAY | END 2024-06-30 11:11 | disposition home or self-care (01) | LOC: OB 12:40 | PROVIDERS: Family Provider Family Medicine; PCP Family Medicine; Referring Provider Obstetrics & Gynecology; Visit Provider Obstetrics & Gynecology | DX: O10.913 Unspecified pre-existing hypertension complicating pregnancy, third trimester (principal); Z3A.35 35 weeks gestation of pregnancy | CPT/HCPCS: 59025; G0378; G0379 ==

== ENCOUNTER 2024-07-07 08:55 | Outpatient (CLI) | payer OTHER, SELFPAY ==
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
== END 2024-07-07 09:30 | disposition home or self-care (01) ==
LOC: OB 15:20
PROVIDERS: Family Provider Family Medicine; PCP Family Medicine; Referring Provider Specialist; Visit Provider Specialist
DX: O10.913 Unspecified pre-existing hypertension complicating pregnancy, third trimester (principal); O09.93 Supervision of high risk pregnancy, unspecified, third trimester; Z3A.36 36 weeks gestation of pregnancy; Z87.59 Personal history of other complications of pregnancy, childbirth and the puerperium
CPT/HCPCS: 59025; G0378; G0379

== ENCOUNTER 2024-07-14 09:42 | Outpatient (CLI) | payer OTHER, SELFPAY ==
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
== END 2024-07-14 10:15 | disposition home or self-care (01) ==
LOC: OB 11:42
PROVIDERS: Family Provider Family Medicine; PCP Family Medicine; Referring Provider Specialist; Visit Provider Specialist
DX: O10.913 Unspecified pre-existing hypertension complicating pregnancy, third trimester (principal); Z3A.37 37 weeks gestation of pregnancy; Z87.59 Personal history of other complications of pregnancy, childbirth and the puerperium
CPT/HCPCS: 59025; G0378; G0379

== ENCOUNTER 2024-07-21 08:53 | Outpatient (CLI) | payer OTHER, SELFPAY ==
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
== END 2024-07-21 09:25 | disposition home or self-care (01) ==
LOC: OB 09:45
PROVIDERS: Family Provider Family Medicine; PCP Family Medicine; Referring Provider Specialist; Visit Provider Specialist
DX: O10.913 Unspecified pre-existing hypertension complicating pregnancy, third trimester (principal); Z3A.37 37 weeks gestation of pregnancy; Z87.59 Personal history of other complications of pregnancy, childbirth and the puerperium
CPT/HCPCS: 59025; G0378; G0379

== ENCOUNTER 2024-07-24 05:42 | Inpatient (IN) | payer OTHER, SELFPAY ==
[2024-07-24 06:26] LABS: Add Manual Diff / Slide Review NO; Basophils Absolute Auto 100 /uL (0-100); Basophils Percent Auto 0.8 % (0-2); Eosinophils Absolute Auto 100 /uL (0-450); Eosinophils Percent Auto 0.7 % (2-4); Hematocrit 35.3 % (36-46); Hemoglobin 12.2 g/dL (12.0-16.0); Lymphocytes Absolute Auto 2300 /uL (1100-4500); Lymphocytes Percent Auto 24.1 % (25-40); Mean Corpuscular HGB Conc 34.6 % (30-36); Mean Corpuscular Hemoglobin 31.1 PG (26-34); Mean Corpuscular Volume 89.9 fL (80-100); Monocytes Absolute Auto 800 /uL (0-900); Monocytes Percent Auto 8.2 % (3-14); Neutrophils Absolute Auto 6400 /uL (1500-7000); Neutrophils Percent Auto 66.2 % (50-75); Platelet Count 227 X10^3/uL (150-400); Red Blood Cell Count 3.92 X10^6/uL (4.0-5.2); Red Cell Distribution Width 12.9 % (11.6-14.8); White Blood Cell Count 9.7 X10^3/uL (4.5-11.0)
[2024-07-24 06:45] VITALS: BP 125/68
[2024-07-24] MEDS: CITRIC ACID/SODIUM CITRATE 15 ML SOLUTION 30 ML PO (07:32)
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
[2024-07-24 07:37] VITALS: BP 125/66; PULSE 82; TEMP 36.7
--- NOTE | 2024-07-24 07:39 | PM.PREOP ---
Pre-operative Note Interval Note History & Physical reviewed/Exam performed by Physician: Yes Changes to H&P: No
[2024-07-24] MEDS: CEFAZOLIN 2 GM/100 ML PREMIX 100 ML IV (07:59)
[2024-07-24] MEDS: TRIAMCINOLONE 40 MG/ML VIAL 10 MG INJ (08:21)
--- NOTE | 2024-07-24 08:30 | SUR.OPER ---
Addendum entered by Delaney Proctor R.N. 07/24/24 09:02: PLACENTA OUT AT 0833 Original Note: HEART RATE AFTER EPIDURAL: 150 VIABLE MALE BABY BORN AT 0827 AT 1 MIN: 7 AT 5 MIN: 9 CORD BLOOD AND PLACENTA LABLED AND HANDED OFF TO OB NURSE.
[2024-07-24] MEDS: ACETAMINOPHEN IV 1,000 MG/100 ML VIAL 400 MG IV (08:56)
--- NOTE | 2024-07-24 09:01 | PM.OBCS.1 ---
Operative Date/Time/Diagnoses Date of procedure: 07/24/24 Time of procedure: 09:01 Pre-op diagnosis: 38.3 week gestation with chronic hypertension, prior section for repeat section Post-op diagnosis: same Procedure & Clinicians Procedure: Repeat low-transverse section, scar revision Same procedure as scheduled: Yes Indications: 38 weeks 3 days gestation with chronic hypertension and prior section with hyperplastic scar Surgeon: Macy Castro [employer] Teacher: [place] Anesthesia Type: Spinal Operative Notes Findings: Hypertrophic Pfannenstiel scar, normal tubes, ovaries, uterus, viable male Closure Type: primary Specimen(s): cord blood Intraoperative meds administered: Duramorph, Ketorolac and Pitocin Applied: Catheter (Funes) Estimated Blood Loss (mL): 250 Blood products transfused: none Procedure in detail: The patient was brought to the operating room where she underwent a spinal for anesthesia. She was placed in a supine position with a left lateral tilt. A Funes catheter was placed. Pulsatile stockings were placed and functional throughout the case. 2 g of Ancef were given IV prior to the incision. Warming was in place. The patient was prepped and draped in usual sterile fashion. A low transverse incision was made with a scalpel and the incision was carried down to the fascial layer which was incised transversely with scissors. The special event assistant did her side of the incision. The midline attachments are superiorly and inferiorly. Some bleeding was controlled Bovie. The rectus muscles were in the midline and the peritoneal incision was made with no damage to internal structures. The peritoneum was incised and superiorly and inferiorly. The incision was stretched with the surgeon and special event assistant placing traction. Bladder blade was placed and a bladder flap was developed and the bladder held away from the lower uterine segment. An incision was made in the uterus with the scalpel and the incision was extended with stretching. The head was elevated out of the abdomen with assistance from the vacuum and with fundal pressure by the special event assistant the baby was delivered. The infant was bulb suctioned for clear fluid and handed off to the warmer. Cord blood was collected. The placenta did not deliver with expression so was removed manually. The uterus was cleaned with clean laps. The uterine incision was closed in 2 layers of 0 chromic suture the first a running locking layer the second an imbricating layer. The special event assistant was helping to expose the incision. The bladder peritoneum was repaired with 2-0 Vicryl suture. The gutters were cleaned of any remaining fluids and ovaries and tubes were observed to be normal. Adequate hemostasis was noted. The perineum was closed with 2-0 Vicryl suture. The fascia layer was closed with 0 Vicryl suture with 2 stitches. The special event assistant repairing half the incision with helping to retract and expose the incision for the other half. The incision was irrigated and adequate hemostasis noted. The incision was closed with interrupted 3-0 Vicryl sutures and then a subcuticular stitch of 4-0 Vicryl suture. Dilute Kenalog was placed along the incision site. Steri-Strips were placed. The uterus was massaged to remove any clots. The patient went to recovery room in good condition. Counts of instruments and sponges were correct. Dr. Landers was present throughout the case to assist with retraction, fundal pressure to deliver the , and suturing half the fascia. Complications: none [place] Baby 1: Delivery Date: 07/24/24 Delivery Time: : Infant Gender: Male Presentation: vertex Position: Right Occiput Anterior Placental Delivery Description: Manual Removal Cord Vessel Description: 3 Vessels score (1 min): 7 score (5 min): 9 Post-operative Condition: stable Disposition: other ( Center) Aftercare: routine postop
[2024-07-24] MEDS: LACTATED RINGERS 1,000 ML 999 ML IV (09:23)
[2024-07-24 09:26] VITALS: BP 125/78; PULSE 78; RESP 22; TEMP 36.1; O2SAT 96
[2024-07-24 09:31] VITALS: BP 118/66; PULSE 79; RESP 19; O2SAT 96
[2024-07-24 09:36] VITALS: BP 106/55; PULSE 78; RESP 16; O2SAT 95
[2024-07-24 09:41] VITALS: BP 115/73; PULSE 84; RESP 14; TEMP 36.3; O2SAT 98
[2024-07-24] MEDS: ONDANSETRON 4 MG/2 ML INJ IV ×2 (09:45→17:02)
[2024-07-24] MEDS: METOCLOPRAMIDE 10 MG/2 ML INJ IV ×2 (11:01→18:08)
[2024-07-24] MEDS: KETOROLAC 30 MG/ML VIAL IV ×2 (14:19→20:19)
[2024-07-24] MEDS: ACETAMINOPHEN 325 MG TABLET 650 MG PO ×2 (16:55→22:49)
[2024-07-24] MEDS: RHO(D) IMMUNE GLOBULIN 1,500 UNIT SYRINGE 1500 UNIT IM (16:56)
[2024-07-24] MEDS: OXYCODONE IR 5 MG TABLET PO (18:05)
[2024-07-24] MEDS: LABETALOL 100 MG TABLET PO (20:21)
[2024-07-25] MEDS: KETOROLAC 30 MG/ML VIAL IV (01:37)
[2024-07-25] MEDS: ACETAMINOPHEN 325 MG TABLET 650 MG PO ×2 (06:01→12:11)
--- NOTE | 2024-07-25 06:58 | PM.OBPN.1 ---
Subjective - OB Subjective Patient comments: no complaints and pain well controlled [facility] baby status: doing well and nursing well feeding status: exclusively breast feeding Narrative: Patient is doing well post section. No headaches, scotomata, epigastric pain. She is urinating after removal of the Funes catheter. She has not passed gas yet. Pain is under control. She is ambulatory. Date Patient Seen: 07/25/24 Time Patient Seen: 06:58 Interval history: Postoperative day 1 repeat section Exam Vital Signs (past 8 hours): Blood pressure 125/72, pulse 87, temperature 98.9? Oxygen Delivery Method Room Air Narrative Exam Narrative: Abdomen is soft, nontender. Uterus is firm, at U, minimally tender. Dressing has non growing area blood. Mild lochia. Extremities without edema and nontender. Objective Labs 07/24/24 06:15 Labs: Laboratory Results - last 24 hr 07/24/24 06:15 Blood Type B Negative Antibody Screen Positive Antibody Identification Anti-D Assessment & Plan Assessment and Plan (1) Delivery by section of full-term infant: Status: Acute (2) Chronic hypertension: Status: Acute (3) Previous section: Status: Acute Plan day: 1 Time-Based Coding :: [TOTAL MINUTES] spent with patient and on the chart (including review of chart, obtaining history, exam, reviewing outside data, placing orders, documenting exam and treatment plan, and counseling patient) on [DATE].
[2024-07-25 09:00] LABS: Add Manual Diff / Slide Review NO; Basophils Absolute Auto 100 /uL (0-100); Basophils Percent Auto 0.5 % (0-2); Eosinophils Absolute Auto 100 /uL (0-450); Eosinophils Percent Auto 0.5 % (2-4); Hematocrit 29.3 % (36-46); Hemoglobin 10.2 g/dL (12.0-16.0); Lymphocytes Absolute Auto 3600 /uL (1100-4500); Lymphocytes Percent Auto 24.5 % (25-40); Mean Corpuscular HGB Conc 34.6 % (30-36); Mean Corpuscular Hemoglobin 31.2 PG (26-34); Mean Corpuscular Volume 90.1 fL (80-100); Monocytes Absolute Auto 1100 /uL (0-900); Monocytes Percent Auto 7.6 % (3-14); Neutrophils Absolute Auto 9900 /uL (1500-7000); Neutrophils Percent Auto 66.9 % (50-75); Platelet Count 233 X10^3/uL (150-400); Red Blood Cell Count 3.26 X10^6/uL (4.0-5.2); White Blood Cell Count 14.8 X10^3/uL (4.5-11.0)
[2024-07-25] MEDS: IBUPROFEN 600 MG TABLET PO (09:21)
[2024-07-25] MEDS: DOCUSATE 100 MG CAPSULE PO (09:22)
[2024-07-25] MEDS: PRENATAL VIT,CALC/IRON/FOLIC 1 TABLET 1 TAB PO (09:22)
[2024-07-25 09:23] VITALS: BP 119/77; PULSE 95
[2024-07-25] MEDS: FERROUS SULFATE 325 MG TABLET PO (09:23)
[2024-07-25] MEDS: LABETALOL 100 MG TABLET PO (09:23)
[2024-07-25] MEDS: OXYCODONE IR 5 MG TABLET PO (12:26)
--- NOTE | 2024-07-25 12:31 | PM.OBDS.1 ---
Discharge Providers Provider Date of admission: 07/24/24 05:42 Discharge Date: 07/25/24 Primary care physician: Trudy Weiss MD Consults: 07/24/24 10:15 Consult to [employer] Machine Operator Routine Comment: Discharge provider: Ritu Lynch DO Summary Hospital Course Date Patient Seen: 07/25/24 Time Patient Seen: 12:32 Diagnoses: Term gestation at 38+3wks Chronic hypertension, on labetalol History of prior cesraean delivery Postoperative anemia Hospital Course: 29yo [id number] admitted at 38+3wks for planned repeat delivery due to chronic hypertension. Her delivery was uncomplicated, and productive of a viable male infant with APGARs 7/9. Her course was unremarkable. On post-op day #1, she was ambulating, tolerating regular diet, voiding spontaneously with minimal lochia. Her blood pressures were within normal parameters. Her pain was well controlled with oral medications, thus she was discharged to home on post-op day #1. Peripartum Data Infant Delivery Method: Section Procedures: External monitoring Neuraxial anesthesia delivery complications: none [place] 1: Gender: Male Disposition of : home Discharge Diagnosis (1) Delivery by section of full-term : Status: Acute (2) Single live : Status: Acute (3) Chronic hypertension: Status: Acute (4) Previous section: Status: Acute (5) Acute postoperative anemia due to expected blood loss: Status: Acute (6) 38 weeks gestation of : Status: Acute Status at Discharge Cognitive/behavioral status at discharge: oriented Functional status at discharge: independent ambulation Overall status at discharge: patient is progressing back to baseline Time Spent with Patient Time attestation: Total time spent providing and/or coordinating discharge services: Time spent: Greater than 30 minutes Objective Labs 07/25/24 08:55 Labs: Laboratory Results - last 24 hr 07/25/24 08:55 WBC 14.8 H D RBC 3.26 L Hgb 10.2 L Hct 29.3 L MCV 90.1 MCH 31.2 MCHC 34.6 RDW 13.0 Plt Count 233 Neut % (Auto) 66.9 Lymph % (Auto) 24.5 L [place] % (Auto) 7.6 Eos % (Auto) 0.5 L Baso % (Auto) 0.5 Neut # (Auto) 9900 H Lymph # (Auto) 3600 [place] # (Auto) 1100 H Eos # (Auto) 100 Baso # (Auto) 100 Exam Vital Signs (past 8 hours): - 07/25/24 09:23 Pulse Rate 95 H Blood Pressure 119/77 Oxygen Delivery Method Room Air reviewed in OBIX, within normal parameters Const General: cooperative, healthy appearing, comfortable and No acute distress Resp Effort & Inspection: normal respiratory effort GI Inspection: normal to inspection Skin General: no rashes or lesions noted Other: low transverse incision covered with Aquacel, minimal strikethrough Neuro General: patient alert and patient awake Extrem General: normal to inspection, no pedal edema and no calf tenderness Psych Mood: congruent mood Affect: normal affect Discharge Plan Discharge Plan Patient Disposition: Home Provider Discharge Comment: Take ibuprofen 600 mg every 6 hours and acetaminophen 650 mg every 6 hours for pain. Use oxycodone 5 mg every 4 hours as needed for severe breakthrough pain. Continue taking labetalol 100 mg twice daily. Avoid placing anything in the vagina for 6 weeks. Avoid lifting over 20 lb for at least 6 weeks. Take an oral iron supplement every other day for the next 3 months due to your postoperative anemia. Follow-up with Dr. Weiss on Wednesday this week for a blood pressure check. Discharge orders & Medications Prescriptions: New oxycodone 5 mg Tablet 5 mg PO Q4H PRN (Reason: Pain, Moderate (4-6)) Qty: 10 0RF Continued ondansetron 4 mg tablet,disintegrating 4 mg PO Q6H PRN (Reason: for nausea/vomiting) Qty: 30 0RF labetalol 100 mg tablet 100 mg PO BID Qty: 60 3RF Prenatabs Rx 29 mg iron- 1 mg Tablet 1 tab PO DAILY Qty: 90 3RF Discontinued aspirin 81 mg tablet,delayed release (DR/EC) 81 mg PO DAILY Unisom (doxylamine) 25 mg tablet 25 - 50 mg PO BID MDD see md order PRN (Reason: provider order) pyridoxine (vitamin B6) 100 mg tablet 100 mg PO BID PRN (Reason: per md order) Follow up/Referrals: Macy Castro MD [Physician] - 07/31/24 2:30 pm (Please follow up with Dr. Castro on 07/31/2024 at 2:30pm for an incision check. Please follow up with Dr. Landers 09/06/2024 at 10:30am for a 6 week follow up.) Diet/Activity/Treatments Diet: Diet as Tolerated Activity: As tolerated. Skin/Wound/Dressing Care Skin care: You may shower normally. Report to your healthcare provider any signs of infection, such as:: chills, fever, increased pain, unusual drainage and unusual redness Dressing: Your bandage will be removed in the office next week. Visit Report/Discharge Packet Instructions: DI for , DI for Prescription Opioid Use Stand Alone Forms: Patient Portal/API, Stroke Signs & Symptoms Discharge Data Primary Care Provider: Trudy Weiss
[2024-07-25 13:10] VITALS: BP 124/75; PULSE 89; RESP 16; TEMP 36.9
== END 2024-07-25 13:35 | disposition home or self-care (01) | DRG 540 ==
PROVIDERS: Admitting Provider Specialist; Family Provider Family Medicine; PCP Family Medicine; Referring Provider Specialist; Visit Provider Specialist
PROC: 10D00Z1 Extraction of Products of Conception, Low, Open Approach (ICD-10-PCS; CPT 59514; principal; 2024-07-24 07:45)
DX: O34.211 Maternal care for low transverse scar from previous cesarean delivery (principal); Z3A.38 38 weeks gestation of pregnancy; Z37.0 Single live birth; O10.92 Unspecified pre-existing hypertension complicating childbirth; O36.0130 Maternal care for anti-D [Rh] antibodies, third trimester, not applicable or unspecified
CPT/HCPCS: 36415; 59050; 85025; 86850; 86870; 86900; 86901; J0131; J0690; J1885; J2274; J2405; J2765; J2790

== ENCOUNTER 2025-02-23 17:07 | Emergency (ER) | payer OTHER, SELFPAY ==
[2025-02-23 17:13] VITALS: BP 147/75; PULSE 96; RESP 18; TEMP 36.7; O2SAT 99; BMI 28.8
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
== END 2025-02-23 20:50 | disposition home or self-care (01) ==
PROVIDERS: Emergency Provider Student in an Organized Health Care Education/Training Program; Family Provider Family Medicine; PCP Family Medicine
DX: L05.91 Pilonidal cyst without abscess (principal)
CPT/HCPCS: 99283